=== PATIENT | male | born 1970 | race Caucasian/White ===

== ENCOUNTER 2016-06-23 13:27 | Emergency (ER) | payer OTHER ==
[2016-06-23 13:32] VITALS: BP 156/84
== END 2016-06-23 19:00 | disposition left against medical advice (07) ==
LOC: ED 13:27
DX: J02.9 Acute pharyngitis, unspecified (principal); Z53.21 Procedure and treatment not carried out due to patient leaving prior to being seen by health care provider

== ENCOUNTER 2017-03-26 07:20 | Emergency (ER) | payer OTHER ==
[2017-03-26] MEDS ORDERED: Dexamethasone TAB* 4 MG PO ONE (08:27)
--- NOTE | 2017-03-26 09:10 | RAD ---
Indication: RIGHT proximal humerus pain since January. No preceding injury. Comparison: August 18, 2015 chest radiograph. Technique: AP and lateral views RIGHT humerus. Report: The elbow is incompletely included in the [id number]. No fracture, periosteal reaction, or focal osseous lesion of the visualized humerus evident. Unremarkable articular alignment. Mild osteoarthritis at the acromioclavicular joint. Unremarkable soft tissue contours. IMPRESSION: Negative radiographic exam of the RIGHT humerus.
[2017-03-26 09:26] LABS: EGFR Non-African American 103.6 (>60)
--- NOTE | 2017-03-26 10:16 | ED ---
Varun Arroyo Angela, scribed for Rodriguez Handley MD on 03/26/17 at 0811 . Upper Extremity Pain - HPI Summary HPI Summary: This pt is a 46 y/o male, right hand dominant, presenting to [facility] c/o right arm pain for approximately 1 month. He reports that around thanksgiving time he hit his right arm on a door but he had pain before this happened. No other injuries prior to this episode. Pt notes he has pain on his right arm the more he raises it. His pain is completely alleviated with rest. Denies weakness in UE , skin changes, shoulder pain, neck swelling, arm swelling. PMHx includes type 2 diabetes. Pt notes he lifts heavy things occasionally. - History of Current Complaint Chief Complaint: EDExtremityUpper Stated Complaint: ARM INJURY Hx Obtained From: Patient Mechanism Of Injury: Unknown Onset/Duration: Started Weeks Ago, Still Present Timing: Lasting Weeks Severity Initially: Moderate Pain Location: Arm - right Aggravating Factor(s): Movement Alleviating Factor(s): Rest Associated Signs & Symptoms: Negative: Swelling, Weakness, Numbness/Tingling, Neck Pain Related History: Dominant Hand Right - Allergies/Home Medications Allergies/Adverse Reactions: Allergies Allergy/AdvReac Type Severity Reaction Status Date / Time No Known Allergies Allergy Verified 12/22/13 07:15 PMH/Surg Hx/FS Hx/Imm Hx Endocrine/Hematology History: Reports: Hx Diabetes - type 2 dm - well controlled Denies: Hx Thyroid Disease Cardiovascular History: Denies: Hx Hypertension, Hx Syncope Respiratory History: Denies: Hx Asthma, Hx Chronic Obstructive Pulmonary Disease (COPD) GI History: Reports: Hx Gastroesophageal Reflux Disease Denies: Hx Hiatal Hernia, Hx Ulcer Musculoskeletal History: Denies: Hx Arthritis, Hx Gout Sensory History: Reports: Hx Contacts or Glasses - for reading Opthamlomology History: Reports: Hx Contacts or Glasses - for reading Neurological History: Reports: Hx Headaches Denies: Hx Seizures Psychiatric History: Reports: Hx Anxiety, Hx Depression Infectious Disease History: No Infectious Disease History: Denies: Hx Hepatitis, Hx Human Immunodeficiency Virus (HIV), Traveled Outside the [place] in Last 30 Days - Family History Known Family History: Positive: Cardiac Disease, Diabetes - Social History Alcohol Use: None Substance Use Type: Reports: None Smoking Status (MU): Former Smoker Type: Cigarettes Have You Smoked in the Last Year: Yes Review of Systems Negative: Fever, Chills Cardiovascular: Negative Respiratory: Negative Musculoskeletal: Other - right arm pain Negative: Other - neck pain Skin: Negative Negative: Weakness, Numbness All Other Systems Reviewed And Are Negative: Yes Physical Exam - Summary Physical Exam Summary: Appearance: Well-appearing, Well-nourished Skin: Warm. No overlying skin changes in area of pain in right arm. Eyes: Normal ENT: Normal Neck: Supple, nontender Respiratory: Clear to auscultation Cardiovascular: Normal Abdomen: Soft, nontender Bowel: Present Musculoskeletal:Strength/ROM Intact. Normal distal pulses in radial areas bilaterally. Normal strength and sensation bilaterally in UE. Pain is reproduced with abduction in right arm. Neurological: Normal, A&Ox3 Psychiatric: Normal Triage Information Reviewed: Yes Vital Signs On Initial Exam: Initial Vitals Temp Pulse Resp BP Pulse Ox 97.4 F 104 20 150/96 100 03/26/17 07:28 03/26/17 07:28 03/26/17 07:28 03/26/17 07:28 03/26/17 07:28 Vital Signs Reviewed: Yes - Len Coma Scale Coma Scale Total: 15 Diagnostics - Vital Signs Vital Signs Temp Pulse Resp BP Pulse Ox 03/26/17 07:28 97.4 F 104 20 150/96 100 - Laboratory Lab Results: Lab Results 03/26/17 03/26/17 Range/Units 08:58 08:58 ESR 14 (0-14) mm/Hr Sodium 132 L (133-145) mmol/L Potassium 4.1 (3.5-5.0) mmol/L Chloride 98 L (101-111) mmol/L Carbon Dioxide 26 (22-32) mmol/L Anion Gap 8 (2-11) mmol/L BUN 15 (6-24) mg/dL Creatinine 0.80 (0.67-1.17) mg/dL Est GFR ( Amer) 133.3 (>60) Est GFR (Non-Af Amer) 103.6 (>60) BUN/Creatinine Ratio 18.8 (8-20) Glucose 251 H (70-100) mg/dL Calcium 9.4 (8.6-10.3) mg/dL Total Bilirubin 0.50 (0.2-1.0) mg/dL AST 19 (13-39) U/L ALT 41 (7-52) U/L Alkaline Phosphatase 61 (34-104) U/L Total Creatine Kinase 85 (10-223) U/L C-Reactive Protein 7.60 H (< 5.00) mg/L Total Protein 7.4 (6.4-8.9) g/dL Albumin 4.3 (3.2-5.2) g/dL Globulin 3.1 (2-4) g/dL Albumin/Globulin Ratio 1.4 (1-3) Result Diagrams: 03/26/17 08:58 Lab Statement: Any lab studies that have been ordered have been reviewed, and results considered in the medical decision making process. - Radiology Right humerus XR Xray Interpretation: No Acute Changes - IMPRESSION: Negative radiographic exam of the RIGHT humerus. Dr. Handley has reviewed this radiology report. Radiology Interpretation Completed By: Radiologist Course/Dx - Course Assessment/Plan: xr neg, labs wnl, neurovascular exam normal, full ROM. pt in no acute distress, I recommended that pt fu with orthopedist, agrees to and understands dc instructions. - Diagnoses Provider Diagnoses: Arm pain, lateral Discharge - Discharge Plan Condition: Stable Disposition: HOME Patient Education Materials: Arm Pain (ED) Referrals: Clifton Sloan MD [Primary Care Provider] - Theodore Teague MD [Medical Doctor] - Sujit Rivero MD [Medical Doctor] - Additional Instructions: PLEASE MAKE AN APPOINTMENT FIRST THING IN THE MORNING TO BE SEEN BY AN ORTHOPEDIST WITHIN 1-2 WEEKS PLEASE RETURN IMMEDIATELY TO THE ER IF YOU HAVE ANY WORSENING OR CONCERNING SYMPTOMS PLEASE MAKE AN APPOINTMENT TO BE SEEN BY YOUR PRIMARY CARE DOCTOR WITHIN 1 WEEK The documentation as recorded by the Varun jackson Angela accurately reflects the service I personally performed and the decisions made by me, Rodriguez Handley MD.
[2017-03-26 10:24] VITALS: BP 133/83
== END 2017-03-26 10:23 | disposition home or self-care (01) ==
LOC: ED 07:20
DX: M79.601 Pain in right arm (principal); E11.9 Type 2 diabetes mellitus without complications; Z87.891 Personal history of nicotine dependence
CPT/HCPCS: 36415; 80053; 82550; 85652; 86140; 99282

== ENCOUNTER 2017-08-01 06:05 | Emergency (ER) | payer OTHER ==
[2017-08-01 06:45] VITALS: BP 121/79
--- NOTE | 2017-08-01 07:09 | ED ---
Skin Complaint - HPI Summary HPI Summary: Pt. is a 47 y.o male who presents to the ER for evaluation of a wood splinter. Pt. states he was working on his house yesterday when he got a splinter to his hand. Pt. states he removed splinter but was concerned there was still a piece of wood in his finger because when he woke up area was painful. He is concerned for infection, because he has a hx of DM2. Pt. states since being in the ER his pain has resolved. He is unaware of his last tetanus immunization. Symptoms are mild in severity. Touching wound makes symptoms worse. Rest makes symptoms better. - History of Current Complaint Chief Complaint: EDLacSutureRecheck Time Seen by Provider: 08/01/17 06:16 Stated Complaint: POSS LT HAND INFECTION Hx Obtained From: Patient Pain Intensity: 0 Pain Scale Used: 0-10 Numeric - Allergy/Home Medications Allergies/Adverse Reactions: Allergies Allergy/AdvReac Type Severity Reaction Status Date / Time No Known Allergies Allergy Verified 05/24/17 14:42 PMH/Surg Hx/FS Hx/Imm Hx Previously Healthy: Yes Endocrine/Hematology History: Reports: Hx Diabetes - type 2 dm - well controlled Denies: Hx Thyroid Disease Cardiovascular History: Denies: Hx Hypertension, Hx Pacemaker/ICD, Hx Syncope Respiratory History: Denies: Hx Asthma, Hx Chronic Obstructive Pulmonary Disease (COPD) GI History: Reports: Hx Gastroesophageal Reflux Disease Denies: Hx Hiatal Hernia, Hx Ulcer History: Denies: Hx Renal Disease Musculoskeletal History: Denies: Hx Arthritis, Hx Gout Sensory History: Reports: Hx Contacts or Glasses - for reading Denies: Hx Hearing Aid Opthamlomology History: Reports: Hx Contacts or Glasses - for reading Neurological History: Reports: Hx Headaches Denies: Hx Seizures Psychiatric History: Reports: Hx Anxiety, Hx Depression Denies: Hx Panic Disorder Infectious Disease History: No Infectious Disease History: Denies: Hx Hepatitis, Hx Human Immunodeficiency Virus (HIV), Traveled Outside the [place] in Last 30 Days - Family History Known Family History: Positive: Cardiac Disease, Diabetes - Social History Occupation: Unemployed Lives: With Family Alcohol Use: None Substance Use Type: Reports: None Smoking Status (MU): Former Smoker Type: Cigarettes Have You Smoked in the Last Year: Yes Review of Systems Constitutional: Negative Negative: Fever, Chills Positive: Other - Wound left hand All Other Systems Reviewed And Are Negative: Yes Physical Exam Triage Information Reviewed: Yes Vital Signs On Initial Exam: Initial Vitals Temp Pulse Resp BP Pulse Ox 97.7 F 102 20 126/76 96 08/01/17 06:07 08/01/17 06:07 08/01/17 06:07 08/01/17 06:07 08/01/17 06:07 Vital Signs Reviewed: Yes Appearance: Positive: Well-Appearing - Pt. standing in room in NAD. Very anxious and talkative. Skin: Positive: Warm, Dry Head/Face: Positive: Normal Head/Face Inspection Eyes: Positive: Normal, TIM Musculoskeletal: Positive: Other - Small wound noted in between 2nd and 3rd digits of the left hand. No induration, fluctuance, or drainage. I do not appreciate FB. No pain to wound. Neurological: Positive: Normal, CN Intact II-III Psychiatric: Positive: Normal Diagnostics - Vital Signs Vital Signs Temp Pulse Resp BP Pulse Ox 08/01/17 06:43 97.4 F 89 18 121/79 98 08/01/17 06:07 97.7 F 102 20 126/76 96 - Laboratory Lab Statement: Any lab studies that have been ordered have been reviewed, and results considered in the medical decision making process. Course/Dx - Course Course Of Treatment: Pt. presenting for wound check. He is afebrile and well appearing. No signs of infection on exam. I do not appreciate FB. Pt. is unaware of his last tetanus immunization. Recommended updating tetanus today in the ER but pt. declined. Advised to f.u with his PCP to check tetanus status and update. To see PCP in 2-3 days for wound check. Pt. concerned wound is going to get infected, bactroban ointment rx. To return to ER for redness, swelling or drainage from wound. Pt. understands and agrees with plan. - Differential Diagnoses - Skin Complaint Differential Diagnoses: Cellulitis, Foreign Body - Diagnoses Provider Diagnoses: Visit for wound check Discharge - Sign-Out/Discharge Documenting (check all that apply): Discharge/Admit/Transfer - Discharge Plan Condition: Good Disposition: HOME Prescriptions: Mupirocin 2% OINT* [Bactroban 2 % Oint*] 1 applic TOPICAL BID #1 tube Patient Education Materials: Acute Wound Care (ED) Referrals: Clifton Sloan MD [Primary Care Provider] - Additional Instructions: Follow up with PCP for wound check in 2-3 days Ointment as directed Keep wound clean and dry Return to ER for redness, swelling, drainage, or fever - Billing Disposition and Condition Condition: GOOD Disposition: HOME
== END 2017-08-01 06:43 | disposition home or self-care (01) ==
LOC: ED 06:05
DX: S60.552A Superficial foreign body of left hand, initial encounter (principal); W45.8XXA Other foreign body or object entering through skin, initial encounter; Y92.019 Unspecified place in single-family (private) house as the place of occurrence of the external cause; Z28.20 Immunization not carried out because of patient decision for unspecified reason; Z87.891 Personal history of nicotine dependence
CPT/HCPCS: 99282

== ENCOUNTER 2017-08-07 08:39 | Emergency (ER) | payer OTHER ==
[2017-08-07] MEDS ORDERED: Sulfamethox/Trimethoprim DS 800/160* TAB PO ONE (09:56)
--- NOTE | 2017-08-07 09:57 | ED ---
Skin Complaint - HPI Summary HPI Summary: 47 year male presents with left-sided groin abscess for the past 12 hours. He states started all of a sudden. He states he's had an abscess previously there. He denies any known history of MRSA. He states that he is taking Keflex for the past couple of days due to a splinter that was stuck in his finger. He states the infection on his finger has been resolving. Denies any fevers. He denies any spreading redness. He is diabetic and his sugars have been good. He denies any chills or bodyaches. - History of Current Complaint Pain Intensity: 8 <Melly Goel - Last Filed: 08/07/17 10:20> <Dalila Munguia - Last Filed: 08/09/17 11:53> - History of Current Complaint Chief Complaint: EDRashSkinAbscess Time Seen by Provider: 08/07/17 09:14 Stated Complaint: BOIL - Allergy/Home Medications Allergies/Adverse Reactions: Allergies Allergy/AdvReac Type Severity Reaction Status Date / Time No Known Allergies Allergy Verified 08/07/17 08:48 Home Medications: Home Medications Cephalexin CAP* [Keflex CAP*] 500 mg PO BID 08/07/17 [History Confirmed 08/07/17 ] Fenofibrate(NF) [Tricor(NF)] 160 mg PO DAILY 08/07/17 [History Confirmed ] Insulin GLARGINE(*) [Lantus(*)] 20 units SUBCUT QPM 08/07/17 [History Confirmed 08/07/17] Losartan TAB* [Cozaar TAB*] 25 mg PO DAILY 08/07/17 [History Confirmed 08/07/17] Multivitamins/Minerals TAB* [Theragran/minerals TAB*] 1 tab PO DAILY 08/07/17 [ History Confirmed 08/07/17] Omeprazole CAP* [Prilosec CAP* 20 MG] 40 mg PO DAILY PRN 08/07/17 [History Confirmed 08/07/17] Sitagliptin Phos/Metformin HCl [Janumet 50-1000 mg] 1 tab PO BID 08/07/17 [ History Confirmed 08/07/17] PMH/Surg Hx/FS Hx/Imm Hx Endocrine/Hematology History: Reports: Hx Diabetes - type 2 dm - well controlled Denies: Hx Thyroid Disease Cardiovascular History: Denies: Hx Hypertension, Hx Pacemaker/ICD, Hx Syncope Respiratory History: Denies: Hx Asthma, Hx Chronic Obstructive Pulmonary Disease (COPD) GI History: Reports: Hx Gastroesophageal Reflux Disease Denies: Hx Hiatal Hernia, Hx Ulcer History: Denies: Hx Renal Disease Musculoskeletal History: Denies: Hx Arthritis, Hx Gout Sensory History: Reports: Hx Contacts or Glasses - for reading Denies: Hx Hearing Aid Opthamlomology History: Reports: Hx Contacts or Glasses - for reading Neurological History: Reports: Hx Headaches Denies: Hx Seizures Psychiatric History: Reports: Hx Anxiety, Hx Depression Denies: Hx Panic Disorder Infectious Disease History: No Infectious Disease History: Denies: Hx Hepatitis, Hx Human Immunodeficiency Virus (HIV), Traveled Outside the [place] in Last 30 Days - Family History Known Family History: Positive: Cardiac Disease, Diabetes - Social History Alcohol Use: None Substance Use Type: Reports: None Smoking Status (MU): Former Smoker Type: Cigarettes Have You Smoked in the Last Year: Yes <Melly Goel - Last Filed: 08/07/17 10:20> Review of Systems Negative: Fever Negative: Chest Pain Negative: Shortness Of Breath Positive: Rash All Other Systems Reviewed And Are Negative: Yes <Melly Goel - Last Filed: 08/07/17 10:20> Physical Exam Triage Information Reviewed: Yes Vital Signs On Initial Exam: Initial Vitals Temp Pulse Resp BP Pulse Ox 98.7 F 127 20 125/83 95 08/07/17 08:43 08/07/17 08:43 08/07/17 08:43 08/07/17 08:43 08/07/17 08:43 Vital Signs Reviewed: Yes Appearance: Positive: Well-Appearing Skin: Positive: Warm, Dry, Other - left side groin area of location 1cm by 2cm with erythema Head/Face: Positive: Normal Head/Face Inspection Eyes: Positive: Normal, Conjunctiva Clear Respiratory/Lung Sounds: Positive: Clear to Auscultation, Breath Sounds Present Cardiovascular: Positive: Normal, RRR Abdomen Description: Positive: Nontender, Soft Bowel Sounds: Positive: Present Musculoskeletal: Positive: Normal Neurological: Positive: Normal Psychiatric: Positive: Normal <Melly Goel - Last Filed: 08/07/17 10:20> Vital Signs On Initial Exam: Initial Vitals Temp Pulse Resp BP Pulse Ox 98.7 F 127 20 125/83 95 08/07/17 08:43 08/07/17 08:43 08/07/17 08:43 08/07/17 08:43 08/07/17 08:43 <Dalila Munguia - Last Filed: 08/09/17 11:53> Diagnostics - Vital Signs Vital Signs Temp Pulse Resp BP Pulse Ox 08/07/17 08:43 98.7 F 127 20 125/83 95 <Melly Goel - Last Filed: 08/07/17 10:20> - Vital Signs Vital Signs Temp Pulse Resp BP Pulse Ox 08/07/17 10:25 98.9 F 100 17 122/81 96 08/07/17 08:43 98.7 F 127 20 125/83 95 <Dalila Munguia - Last Filed: 08/09/17 11:53> Course/Dx - Course Course Of Treatment: 47 year male presents with left-sided groin abscess for the past 12 hours. He states started all of a sudden. He states he's had an abscess previously there. He denies any known history of MRSA. He states that he is taking Keflex for the past couple of days due to a splinter that was stuck in his finger. He states the infection on his finger has been resolving. Denies any fevers. He denies any spreading redness. He is diabetic and his sugars have been good. He denies any chills or bodyaches. on exam has loculated area of left groin 1cm by 2cm. area is too hard to drain at this point. will have place on bactrim and place heat on the area. will have return when area is able to be drained. patient understand and agrees with plan. - Differential Diagnoses - Skin Complaint Differential Diagnoses: Abscess, Cellulitis, Contact Dermatitis <Melly Goel - Last Filed: 08/07/17 10:20> <Dalila Munguia - Last Filed: 08/09/17 11:53> - Diagnoses Provider Diagnoses: Groin abscess Discharge - Sign-Out/Discharge Documenting (check all that apply): Discharge/Admit/Transfer - Billing Disposition and Condition Condition: GOOD Disposition: HOME <Melly Goel - Last Filed: 08/07/17 10:20> - Billing Disposition and Condition Condition: GOOD Disposition: HOME <Dalila Munguia - Last Filed: 08/09/17 11:53> - Discharge Plan Condition: Good Disposition: HOME Prescriptions: Sulfamethox/Trimethoprim DS* [Bactrim DS 800/160 TAB*] 1 tab PO BID #19 tab Patient Education Materials: Abscess (ED) Referrals: Clifton Sloan MD [Primary Care Provider] - Additional Instructions: Take antibiotic twice a day for 10 days, first dose given in ED Apply warm compresses to area Take ibuprofen or Tylenol for pain every 6 hours Return to ED if develop fever, area of redness spreads, or any new or worsening symptoms Attestation Statement User Type: Provider - I was available for consult. This patient was seen by the MARITZA. The patient was not presented to, seen by, or examined by me. -Rodrigoj <Dalila Munguia - Last Filed: 08/09/17 11:53>
[2017-08-07 10:27] VITALS: BP 122/81
== END 2017-08-07 10:25 | disposition home or self-care (01) ==
LOC: ED 08:39
DX: L02.214 Cutaneous abscess of groin (principal); E11.9 Type 2 diabetes mellitus without complications; Z79.4 Long term (current) use of insulin; Z87.891 Personal history of nicotine dependence
CPT/HCPCS: 99282; A9270-GY

== ENCOUNTER 2017-08-11 12:25 | Emergency (ER) | payer OTHER ==
[2017-08-11 13:53] VITALS: BP 119/92
--- NOTE | 2017-08-12 10:02 | ED ---
Skin Complaint - HPI Summary HPI Summary: Patient's 47-year-old male presenting to the ED with a complaint of left groin abscess. He was seen 4 days ago and provider stated she would be unable to perform an I&D as the area still was very hard and indurated and not fluctuant. He was to return after providing warm compresses to the area for an I&D. He arrives today for a wound check an I&D and states the area is much more fluctuant and it was several days ago. He states he has had an abscess in this area several years ago. Denies any shaving to the area. He has been on Keflex for a hand infection for one week and was placed on Bactrim 4 days ago. He feels this has improved the symptoms and softened the area. Denies any fevers, sweats, chills. Denies any other signs of systemic illness. - History of Current Complaint Chief Complaint: EDRashSkinAbscess Time Seen by Provider: 08/11/17 13:10 Stated Complaint: ABSCESS Hx Obtained From: Patient Onset/Duration: Started Days Ago Skin Exposure Onset/Duration: Hours Ago Timing: Constant Onset Severity: Moderate Current Severity: Moderate Pain Intensity: 3 Pain Scale Used: 0-10 Numeric Skin Location: Discrete - left groin Character: Redness, Raised, Painful - All Aggravating Symptom(s): Nothing Alleviating Symptom(s): Heat Associated Signs & Symptoms: Tenderness - Allergy/Home Medications Allergies/Adverse Reactions: Allergies Allergy/AdvReac Type Severity Reaction Status Date / Time No Known Allergies Allergy Verified 08/11/17 12:28 PMH/Surg Hx/FS Hx/Imm Hx Previously Healthy: Yes Endocrine/Hematology History: Reports: Hx Diabetes - type 2 dm - well controlled Denies: Hx Thyroid Disease Cardiovascular History: Denies: Hx Hypertension, Hx Pacemaker/ICD, Hx Syncope Respiratory History: Denies: Hx Asthma, Hx Chronic Obstructive Pulmonary Disease (COPD) GI History: Reports: Hx Gastroesophageal Reflux Disease Denies: Hx Hiatal Hernia, Hx Ulcer History: Denies: Hx Renal Disease Musculoskeletal History: Denies: Hx Arthritis, Hx Gout Sensory History: Reports: Hx Contacts or Glasses - for reading Denies: Hx Hearing Aid Opthamlomology History: Reports: Hx Contacts or Glasses - for reading Neurological History: Reports: Hx Headaches Denies: Hx Seizures Psychiatric History: Reports: Hx Anxiety, Hx Depression Denies: Hx Panic Disorder - Immunization History Hx Pertussis Vaccination: No Immunizations Up to Date: Unable to Obtain/Confirm Infectious Disease History: No Infectious Disease History: Denies: Hx Hepatitis, Hx Human Immunodeficiency Virus (HIV), Traveled Outside the [place] in Last 30 Days - Family History Known Family History: Positive: Cardiac Disease, Diabetes - Social History Occupation: Employed Full-time Lives: Alone Alcohol Use: None Substance Use Type: Reports: None Hx Tobacco Use: Yes Smoking Status (MU): Former Smoker Type: Cigarettes Have You Smoked in the Last Year: Yes Review of Systems Constitutional: Negative Negative: Fever, Chills, Fatigue Negative: Palpitations, Chest Pain Negative: Shortness Of Breath, Cough Genitourinary: Negative Positive: no symptoms reported, see HPI Negative: Arthralgia, Myalgia Positive: Other - slightly fluctuant erythematous warm 2x1cm area to the left groin Neurological: Negative Positive: Anxious All Other Systems Reviewed And Are Negative: Yes Physical Exam Triage Information Reviewed: Yes Vital Signs On Initial Exam: Initial Vitals Temp Pulse Resp BP Pulse Ox 96.6 F 116 16 126/100 100 08/11/17 12:28 08/11/17 12:28 08/11/17 12:28 08/11/17 12:28 08/11/17 12:28 Vital Signs Reviewed: Yes Appearance: Positive: Well-Appearing, Well-Nourished Skin: Positive: Warm, Skin Color Reflects Adequate Perfusion, Other - slightly fluctuant erythematous warm 2x1cm area to the left groin Head/Face: Positive: Normal Head/Face Inspection Neck: Positive: Supple, No Lymphadenopathy Respiratory/Lung Sounds: Positive: Clear to Auscultation, Breath Sounds Present Cardiovascular: Positive: Normal, RRR, Pulses are Symmetrical in both Upper and Lower Extremities Musculoskeletal: Positive: Strength/ROM Intact Neurological: Positive: Sensory/Motor Intact, Alert, Oriented to Person Place, Time, Speech Normal Psychiatric: Positive: Normal, Affect/Mood Appropriate AVPU Assessment: Alert Diagnostics - Vital Signs Vital Signs Temp Pulse Resp BP Pulse Ox 08/11/17 13:52 98.8 F 101 17 119/92 97 08/11/17 12:28 96.6 F 116 16 126/100 100 - Laboratory Lab Statement: Any lab studies that have been ordered have been reviewed, and results considered in the medical decision making process. Course/Dx - Course Course Of Treatment: On physical examination there is a 2 cm x 1 cm erythematous and warm only slightly fluctuant area to the left groin. I have discussed treatment options with the patient to continue moist heat to the area or to attempt an I&D at this time. He prefers an I&D due to pain. Time out obtained. Sterile prep with iodine. Small 0.5 cm incision to the most superior portion with expressed bleeding. No purulent drainage. The area appears to be tissue. I discussed this is likely a lymph node and not a abscess however it is difficult to tell as he has been taking an antibiotic which may have improved the abscess. He is to follow-up with surgery. No iodoform gauze or drain placement. Bandage applied and I have continue to encourage warm compresses and he will complete his course of antibiotics. - Differential Diagnoses - Skin Complaint Differential Diagnoses: Other - groin cyst, lymphnode, mass, abscess - Diagnoses Provider Diagnoses: Groin mass Discharge - Sign-Out/Discharge Documenting (check all that apply): Discharge/Admit/Transfer - Discharge Plan Condition: Stable Disposition: HOME Referrals: Liam Parada MD [Medical Doctor] - Clifton Sloan MD [Primary Care Provider] - Additional Instructions: Please follow up with surgery if symptoms persist despite the antibiotics - Billing Disposition and Condition Condition: STABLE Disposition: HOME
== END 2017-08-11 13:52 | disposition home or self-care (01) ==
LOC: ED 12:25
DX: R22.2 Localized swelling, mass and lump, trunk (principal); Z87.891 Personal history of nicotine dependence
CPT/HCPCS: 99282

== ENCOUNTER 2017-08-18 10:50 | Emergency (ER) | payer OTHER ==
--- OUTSIDE RECORDS SUMMARY | 2017-08-18 11:17 | XMS REPORT ---
:1970 External Reference #:[id number] Author Organization [facility] Address [address] [place] [address] Phone [phone] Care Team Providers Name Role Phone Clifton Sloan MD Primary Care Physician Unavailable Payers Type Date Identification Numbers Payment Provider Subscriber Commercial Expires: Policy Number: Hcpip[employer] Lul Arriola 2014 [id number] Group Name: [address] [place] [address] Commercial Effective: 2014 Policy Number: [id number] Lavelle Arriola Group Number: [id number] [address] PayID: [id number] [place] [address] Problems Date Description Provider Status Onset: 06/04/2014 Diabetes mellitus Malik Antonio M.D. Active Onset: 06/04/2014 Dyslipidemia Malik Antonio M.D. Active Onset: 07/20/2015 Diabetic retinopathy Jacob Mullen NP Active Note: Mild Dr. Franklin monitoring Onset: 09/13/2015 Hyperlipidemia Clifton Sloan M.D. Active Onset: 09/13/2015 Chronic obstructive lung disease Clifton Sloan M.D. Active Onset: 09/13/2015 Type 2 diabetes mellitus with Clifton Sloan M.D. Active diabetic polyneuropathy Onset: 09/29/2015 Scar emphysema Clifton Sloan M.D. Active Onset: 09/29/2015 Asthma without status asthmaticus Clifton Sloan M.D. Active Onset: 09/29/2015 Pityriasis versicolor Clifton Sloan M.D. Active Onset: 01/27/2016 Mixed hyperlipidemia Clifton Sloan M.D. Active Onset: 01/27/2016 Obesity Clifton Sloan M.D. Active Onset: 12/04/2016 Plantar fascial fibromatosis Clifton Sloan M.D. 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 Quit 2012. Recreational Drug Use Denies Drug Use Daily Caffeine Consumes on average 4 pots of regular coffee per day Exercise Type/Frequency Does not exercise Allergies, Adverse Reactions, Alerts Date Description Reaction Status Severity Comments 09/08/2014 NKDA active Medications Medication Date Status Form Strength Qnty SIG Indications Ordering Provider BD Pen 07/02/ Active Misc 31G X 5 mm 300uni use with Clifton Needle/Mini/Ul 2018 ts Basaglsapna Sloan, trafine/31G X daily M.D. 05/31" Janumet 07/01/ Active Tablets 50-1000mg 60tabs take 1 Z01.818 Mcgraws 2018 tablet by Luther, mouth M.D. twice a day Basaglar 07/01/ Active Solution 100Unit/ML 15unit Inject 20 Natalie Kwikpen 2018 Pen-Inject s Units SQ Cotton, hs M.D. Losartan 12/04/ Active Tablets 25mg 30tabs take one E11.42 Mcgraws Potassium 2017 tablet Pachikara, daily. M.D. Fenofibrate 09/10/ Active Tablets 160mg 30tabs Take One Zsofia 2015 Tablet By [place] Mouth TESTER OPERATOR Every Day Omeprazole / Active Capsules 40mg 30caps Take One Mcgraws [address] DR Capsule By Luther, Mouth M.D. Every Day Sulfamethoxazo / Active Tablets 800-160mg bid Unknown le/Trimethopri 0000 m DS Cephalexin / Active Capsules 500mg bid Unknown 0000 Toujeo Max 07/01/ Hx Solution 300Unit/ML 6ml 20 units Z01.818 Mcgraws Solostar 2018 - Pen-Inject hs [facility], 07/01/ M.D. 2018 Toujeo 07/01/ Hx Solution 300Unit/ML 3ml inject 20 Clifton Solostar 2018 - Pen-Inject units [facility], 07/01/ under the M.D. 2018 skin at Pulmicort 02/21/ Hx Aerosol 180mcg/Act 1units inhale one J45.909 Clifton Flexhaler 2016 - puff by [facility], 12/04/ mouth M.D. 2017 twice a day Atorvastatin 01/26/ Hx Tablets 20mg 30tabs take 1 E78.2 Clifton Calcium 2015 - tablet at [facility], 06/25/ bedtime M.D. 2016 Ketoconazole 09/28/ Hx Cream 2% 120gm apply B36.0 Clifton 2015 - twice a [facility], 06/29/ day M.D. 2017 Symbicort 09/25/ Hx Aerosol 160-4.5mcg 30.6gm 2 puff J45.909 Zsofia 2016 - /Act once a day [place], 04/17/ for 1 week TESTER OPERATOR 2017 then stop Proair HFA 09/25/ Hx Aerosol 108(90Base 25.5gm 2 puffs ih J45.909 Clifton 2016 - ) mcg/Act every 6 [facility], 12/04/ hours as M.D. 2017 needed Metformin HCL 05/13/ Hx Tablets 1000mg 60tabs Take One Clifton 2015 - Tablet By [facility], 07/01/ Mouth M.D. 2017 Twice A Day Glipizide ER 05/13/ Hx Tablets ER 10mg 30tabs Take One E11.9 Clifton 2015 - 24HR Tablet By [facility], 07/01/ Mouth M.D. 2018 Every Day Fenofibrate 09/08/ Hx Tablets 145mg 90tabs 1 by mouth 272.4 Malik 2014 - every day Antonio, 09/10/ M.D. 2014 Glipizide ER 06/04/ Hx Tablets ER 5mg 60tabs 1 by mouth E11.9 Malik 2015 - 24HR every day Antonio, 05/13/ M.D. 2016 Metformin HCL / Hx Tablets 500mg 60tabs 1 tablet Malik 0000 - by mouth Antonio, 05/13/ twice a M.D. 2016 day Medications Administered in Office Medication Date Status Form Strength Qnty SIG Indications Ordering Provider Depomedrol Administered Injection Giorgio 40MG 018 MD Corinne Vital Signs Date Vital Result Comment 08/13/2017 Height 72 inches 6'0" Weight 235.00 lb Heart Rate 97 /min BP Systolic Sitting 134 mmHg BP Diastolic Sitting 76 mmHg Body Temperature 97.7 F O2 % BldC Oximetry 97 % BMI (Body Mass Index) 31.9 kg/m2 07/01/2017 Weight 246.00 lb Heart Rate 105 /min BP Systolic Sitting 126 mmHg BP Diastolic Sitting 66 mmHg Body Temperature 97.7 F O2 % BldC Oximetry 96 % 06/14/2017 Height 72 inches 6'0" Weight 244.00 lb Heart Rate 123 /min Respiratory Rate 18 /min Body Temperature 98.0 F Pain Level 0 BMI (Body Mass Index) 33.1 kg/m2 05/03/2017 Height 72 inches 6'0" Heart Rate 100 /min Respiratory Rate 16 /min 04/11/2017 Heart Rate 105 /min BP Systolic Sitting 137 mmHg BP Diastolic Sitting 81 mmHg Body Temperature 97.5 F O2 % BldC Oximetry 97 % 03/27/2017 Height 72 inches 6'0" Heart Rate 65 /min BP Systolic 116 mmHg BP Diastolic 70 mmHg Respiratory Rate 20 /min Body Temperature 97.9 F Pain Level 10 01/16/2017 Height 72 inches 6'0" Weight 244.00 lb Heart Rate 88 /min BP Systolic 122 mmHg BP Diastolic 80 mmHg Respiratory Rate 14 /min Body Temperature 98.0 F Pain Level 6 BMI (Body Mass Index) 33.1 kg/m2 12/04/2016 Height 72 inches 6'0" Weight 244.50 lb Heart Rate 93 /min BP Systolic 136 mmHg BP Diastolic 78 mmHg Body Temperature 98.2 F O2 % BldC Oximetry 96 % BMI (Body Mass Index) 33.2 kg/m2 06/29/2016 Weight 233.00 lb Heart Rate 98 /min BP Systolic Sitting 130 mmHg BP Diastolic Sitting 86 mmHg Body Temperature 98.2 F O2 % BldC Oximetry 98 % 06/25/2016 Weight 234.00 lb Heart Rate 96 /min BP Systolic Sitting 116 mmHg BP Diastolic Sitting 76 mmHg Body Temperature 98.0 F O2 % BldC Oximetry 96 % 02/22/2016 Weight 245.38 lb Heart Rate 116 /min BP Systolic Sitting 149 mmHg BP Diastolic Sitting 83 mmHg Body Temperature 98.4 F O2 % BldC Oximetry 98 % 01/27/2016 Height 72 inches 6'0" Weight 245.38 lb Heart Rate 108 /min BP Systolic Sitting 130 mmHg BP Diastolic Sitting 86 mmHg Body Temperature 97.3 F O2 % BldC Oximetry 98 % BMI (Body Mass Index) 33.3 kg/m2 09/29/2015 Height 72 inches 6'0" Heart Rate 100 /min BP Systolic Sitting 126 mmHg BP Diastolic Sitting 88 mmHg Body Temperature 97.8 F O2 % BldC Oximetry 98 % 09/13/2015 Height 72 inches 6'0" Weight 244.00 lb Heart Rate 102 /min BP Systolic Sitting 132 mmHg BP Diastolic Sitting 88 mmHg O2 % BldC Oximetry 97 % BMI (Body Mass Index) 33.1 kg/m2 07/19/2015 Height 72 inches 6'0" Weight 244.00 lb Heart Rate 101 /min BP Systolic 121 mmHg BP Diastolic 74 mmHg Pain Level 6 BMI (Body Mass Index) 33.1 kg/m2 07/06/2015 Height 72 inches 6'0" Heart Rate 117 /min BP Systolic Sitting 94 mmHg BP Diastolic Sitting 72 mmHg Body Temperature 98.6 F O2 % BldC Oximetry 97 % 06/13/2015 Height 72 inches 6'0" Weight 239.00 lb Heart Rate 108 /min BP Systolic Sitting 138 mmHg BP Diastolic Sitting 86 mmHg Body Temperature 98.4 F O2 % BldC Oximetry 98 % BMI (Body Mass Index) 32.4 kg/m2 05/13/2015 Height 72 inches 6'0" Weight 238.38 lb Heart Rate 106 /min BP Systolic Sitting 118 mmHg BP Diastolic Sitting 80 mmHg Body Temperature 98.5 F O2 % BldC Oximetry 98 % BMI (Body Mass Index) 32.3 kg/m2 11/02/2014 Height 72 inches 6'0" Weight 246.50 lb Heart Rate 84 /min BP Systolic Sitting 124 mmHg BP Diastolic Sitting 68 mmHg Body Temperature 97.5 F O2 % BldC Oximetry 98 % BMI (Body Mass Index) 33.4 kg/m2 09/08/2014 Height 72 inches 6'0" Weight 243.25 lb Heart Rate 88 /min BP Systolic Sitting 108 mmHg BP Diastolic Sitting 70 mmHg Body Temperature 97.4 F O2 % BldC Oximetry 98 % BMI (Body Mass Index) 33.0 kg/m2 06/04/2014 Height 72 inches 6'0" Weight 230.00 lb Heart Rate 105 /min BP Systolic Sitting 124 mmHg BP Diastolic Sitting 88 mmHg Body Temperature 97.8 F O2 % BldC Oximetry 97 % BMI (Body Mass Index) 31.2 kg/m2 10/17/2012 Height 72 inches 6'0" Weight 200.00 lb Heart Rate 136 /min BP Systolic 120 mmHg BP Diastolic 77 mmHg BMI (Body Mass Index) 27.1 kg/m2 Results Test Date Test Result H/L Range Note Laboratory test finding 07/01/2017 Hemoglobin A1c 10.9 High 5-7 Laboratory test finding 04/11/2017 Hemoglobin A1c 10.8 High 5-7 Lipid Profile (Trig/Chol/HDL) 04/10/2017 Triglycerides 196 mg/dL 1 Cholesterol 261 mg/dL 2 HDL Cholesterol 40.0 mg/dL 3 LDL Cholesterol 182 mg/dL 4 Laboratory test finding 03/26/2017 Creatine Kinase(CK) 85 U/L 10-223 C Reactive Protein 7.60 mg/L High < 5.00 5 Erythrocyte Sed Rate 14 mm/Hr 0-14 Comp Metabolic Panel 03/26/2017 Sodium 132 mmol/L Low 133-145 Potassium 4.1 mmol/L 3.5-5.0 Chloride 98 mmol/L Low 101-111 Co2 Carbon Dioxide 26 mmol/L 22-32 Anion Gap 8 mmol/L 2-11 Glucose 251 mg/dL High 70-100 Blood Urea Nitrogen 15 mg/dL 6-24 Creatinine 0.80 mg/dL 0.67-1.17 BUN/Creatinine Ratio 18.8 8-20 Calcium 9.4 mg/dL 8.6-10.3 Total Protein 7.4 g/dL 6.4-8.9 Albumin 4.3 g/dL 3.2-5.2 Globulin 3.1 g/dL 2-4 Albumin/Globulin Ratio 1.4 1-3 Total Bilirubin 0.50 mg/dL 0.2-1.0 Alkaline Phosphatase 61 U/L 34-104 Alt 41 U/L 7-52 Ast 19 U/L 13-39 Egfr Non- 103.6 >60 Egfr 133.3 >60 6 Laboratory test finding 12/04/2016 Hemoglobin A1c 9.4 High 5-7 Lipid Profile (Trig/Chol/HDL) 12/03/2016 Triglycerides 399 mg/dL 7 Cholesterol 270 mg/dL 8 HDL Cholesterol 37.1 mg/dL 9 LDL Cholesterol 153 mg/dL 10 Laboratory test finding 06/25/2016 Rapid Group A Strep neg Urine Microalbumin Random 06/25/2016 Urine Creatinine 179.57 mg/dL Ur Microalbumin (mg/L) 16.3 mg/L Urine Microalbumin/Creatinine 9.0 ug/mg <31 Laboratory test 06/25/2016 Hemoglobin A1c (Glyco 9.9 % High Less than 6.0 11 finding HGB) Lipid Profile 06/25/2016 Triglycerides 745 mg/dL 12 (Trig/Chol/HDL) Cholesterol 306 mg/dL 13 HDL Cholesterol 38.4 mg/dL 14 LDL Cholesterol (SEE NOTE) mg/dL 15 Laboratory test 01/27/2016 Hemoglobin A1c 8.9 High 5-7 finding Laboratory test 01/18/2016 Alpha 1 Antitrypsin 136 mg/dL 100 - 190 16 finding A1a Laboratory test 01/18/2016 PSA Screening 0.726 ng/mL 0-4.000 17 finding Comp Metabolic Panel 01/18/2016 Sodium 136 mmol/L 133-145 Potassium 4.3 mmol/L 3.5-5.0 Chloride 100 mmol/L Low 101-111 Co2 Carbon Dioxide 27 mmol/L 22-32 Anion Gap 9 mmol/L 2-11 Glucose 197 mg/dL High 70-100 Blood Urea Nitrogen 14 mg/dL 6-24 Creatinine 1.02 mg/dL 0.67-1.17 BUN/Creatinine Ratio 13.7 8-20 Calcium 9.2 mg/dL 8.6-10.3 Total Protein 7.0 g/dL 6.4-8.9 Albumin 4.2 g/dL 3.2-5.2 Globulin 2.8 g/dL 2-4 Albumin/Globulin Ratio 1.5 1-3 Total Bilirubin 0.60 mg/dL 0.2-1.0 Alkaline Phosphatase 51 U/L 34-104 Alt 46 U/L 7-52 Ast 19 U/L 13-39 Egfr Non- 78.6 >60 Egfr 101.1 >60 18 Lipid Profile (Trig/Chol/HDL) 01/18/2016 Triglycerides 259 mg/dL 19 Cholesterol 243 mg/dL 20 HDL Cholesterol 39.2 mg/dL 21 LDL Cholesterol 152 mg/dL 22 Comp Metabolic Panel 09/08/2015 Sodium 133 mmol/L 133-145 Potassium 4.3 mmol/L 3.5-5.0 Chloride 101 mmol/L 101-111 Co2 Carbon Dioxide 24 mmol/L 22-32 Anion Gap 8 mmol/L 2-11 Glucose 193 mg/dL High 70-100 Blood Urea Nitrogen 12 mg/dL 6-24 Creatinine 0.88 mg/dL 0.67-1.17 BUN/Creatinine Ratio 13.6 8-20 Calcium 9.2 mg/dL 8.6-10.3 Total Protein 6.8 g/dL 6.4-8.9 Albumin 4.3 g/dL 3.2-5.2 Globulin 2.5 g/dL 2-4 Albumin/Globulin Ratio 1.7 1-3 Total Bilirubin 0.40 mg/dL 0.2-1.0 Alkaline Phosphatase 47 U/L 34-104 Alt 29 U/L 7-52 Ast 14 U/L 13-39 Egfr Non- 93.2 >60 Egfr 119.9 >60 23 Laboratory test 09/08/2015 Hemoglobin A1c (Glyco 8.1 % High Less than 6.0 24 finding HGB) Lipid Profile 09/08/2015 Triglycerides 213 mg/dL 25 (Trig/Chol/HDL) Cholesterol 208 mg/dL 26 HDL Cholesterol 39.5 mg/dL 27 LDL Cholesterol 126 mg/dL 28 Comp Metabolic Panel 06/07/2015 Sodium 134 mmol/L 133-145 Potassium 4.1 mmol/L 3.5-5.0 Chloride 98 mmol/L Low 101-111 Co2 Carbon Dioxide 27 mmol/L 22-32 Anion Gap 9 mmol/L 2-11 Glucose 214 mg/dL High 70-100 Blood Urea Nitrogen 15 mg/dL 6-24 Creatinine 0.96 mg/dL 0.67-1.17 BUN/Creatinine Ratio 15.6 8-20 Calcium 9.1 mg/dL 8.6-10.3 Total Protein 6.6 g/dL 6.4-8.9 Albumin 4.0 g/dL 3.2-5.2 Globulin 2.6 g/dL 2-4 Albumin/Globulin Ratio 1.5 1-3 Total Bilirubin 0.40 mg/dL 0.2-1.0 Alkaline Phosphatase 53 U/L 34-104 Alt 34 U/L 7-52 Ast 19 U/L 13-39 Egfr Non- 84.7 >60 Egfr 108.9 >60 29 Laboratory test finding 05/13/2015 Hemoglobin A1c 9.7 High 5-7 Lipid Profile (Trig/Chol/HDL) 05/10/2015 Triglycerides 258 mg/dL 30 Cholesterol 247 mg/dL 31 HDL Cholesterol 36.0 mg/dL 32 LDL Cholesterol 159 mg/dL 33 Laboratory test finding 11/02/2014 Glucose Fingerstick 215 Laboratory test finding 11/02/2014 Hemoglobin A1c 8.6 High 5-7 Comp Metabolic Panel 10/27/2014 Sodium 134 mmol/L 133-145 34 Potassium 4.4 mmol/L 3.5-5.0 34 Chloride 99 mmol/L Low 101-111 34 Co2 Carbon Dioxide 25 mmol/L 22-32 34 Anion Gap 10 mmol/L 2-11 34 Glucose 307 mg/dL High 70-100 34 Blood Urea Nitrogen 14 mg/dL 6-24 34 Creatinine 0.92 mg/dL 0.67-1.17 34 BUN/Creatinine Ratio 15.2 8-20 34 Calcium 9.1 mg/dL 8.6-10.3 34 Total Protein 6.9 g/dL 6.4-8.9 34 Albumin 4.3 g/dL 3.2-5.2 34 Globulin 2.6 g/dL 2-4 34 Albumin/Globulin Ratio 1.7 1-3 34 Total Bilirubin 0.40 mg/dL 0.2-1.0 34 Alkaline Phosphatase 60 U/L 34-104 34 Alt 43 U/L 7-52 34 Ast 18 U/L 13-39 34 Egfr Non- 89.0 >60 34 Egfr 114.4 >60 34, 35 Comp Metabolic Panel 06/04/2014 Sodium 130 mmol/L Low 133-145 36 Potassium 4.1 mmol/L 3.5-5.0 36 Chloride 97 mmol/L Low 101-111 36 Co2 Carbon Dioxide 26 mmol/L 22-32 36 Anion Gap 7 mmol/L 2-11 36 Glucose 289 mg/dL High 70-100 36 Blood Urea Nitrogen 11 mg/dL 6-24 36 Creatinine 0.83 mg/dL 0.67-1.17 36 BUN/Creatinine Ratio 13.3 8-20 36 Calcium 9.2 mg/dL 8.6-10.3 36 Total Protein 7.1 g/dL 6.4-8.9 36 Albumin 4.4 g/dL 3.2-5.2 36 Globulin 2.7 g/dL 2-4 36 Albumin/Globulin Ratio 1.6 1-3 36 Total Bilirubin 0.60 mg/dL 0.2-1.0 36 Alkaline Phosphatase 90 U/L 34-104 36 Alt 25 U/L 7-52 36 Ast 16 U/L 13-39 36 Egfr Non- 100.6 >60 36 Egfr 129.4 >60 36, 37 Laboratory test finding 06/04/2014 Hemoglobin A1c 11.4 High 5-7 CBC Auto Diff 06/04/2014 White Blood Count 7.9 10^3/uL 4.8-10.8 36 Red Blood Count 6.10 10^6/uL High 4.0-5.4 36 Hemoglobin 17.4 g/dL 14.0-18.0 36 Hematocrit 51 % 42-52 36 Mean Corpuscular Volume 83 fL 80-94 36 Mean Corpuscular Hemoglobin 29 pg 27-31 36 Mean Corpuscular HGB Conc 34 g/dL 31-36 36 Red Cell Distribution Width 13 % 10.5-15 36 Platelet Count 203 10^3/uL 150-450 36 Mean Platelet Volume 8 um3 7.4-10.4 36 Abs Neutrophils 4.8 10^3/uL 1.5-7.7 36 Abs Lymphocytes 1.9 10^3/uL 1.0-4.8 36 Abs Monocytes 0.9 10^3/uL High 0-0.8 36 Abs Eosinophils 0.1 10^3/uL 0-0.6 36 Abs Basophils 0 10^3/uL 0-0.2 36 Abs Nucleated RBC 0.02 10^3/uL 36 Granulocyte % 61.3 % 38-83 36 Lymphocyte % 24.5 % Low 25-47 36 Monocyte % 12.0 % High 1-9 36 Eosinophil % 1.7 % 0-6 36 Basophil % 0.5 % 0-2 36 Nucleated Red Blood Cells % 0.3 36 Laboratory test 06/04/2014 TSH (Thyroid 0.86 IU/mL 0.34-5.60 36, 38 finding Stimulating Horm) Lipid Profile 06/04/2014 Triglycerides 844 mg/dL 36, 39 (Trig/Chol/HDL) Cholesterol 307 mg/dL 36, 40 HDL Cholesterol 37.3 mg/dL 36, 41 LDL Cholesterol (SEE NOTE) mg/dL 36, 42 Urinalysis Profile 06/04/2014 Urine Color Yellow 36 Urine Appearance Cloudy 36 Urine Specific [place] 1.033 High 1.010-1.030 36 Urine pH 5.0 5-9 36 Urine Urobilinogen Negative Negative 36 Urine Ketones 1+ Negative 36 Urine Protein Negative Negative 36 Urine Leukocytes Negative Negative 36 Urine Blood Negative Negative 36 * * Negative 36, 43 Urine Nitrite Negative Negative 36 Urine Bilirubin Negative Negative 36 Urine Glucose 3+(>=500 mg/dL) Negative 36 Urine Microalbumin Random 06/04/2014 Ur Microalbumin (mg/L) 44.0 mg/L 36 Urine Creatinine 175.04 mg/dL 36 Urine Microalbumin/Creatinine 25.1 Less Than 31 36 1 Desirable: <150 Borderline High: 150-199 High: 200-499 Very High: >500 2 Desirable: <200 Borderline High: 200-239 High: >239 3 Low: <40 Desirable: 40-60 High: >60 4 Desirable: <100 Near Optimal: 100-129 Borderline High: 130-159 High: 160-189 Very High: >189 5 Acute inflammation: >10.00 6 Because ethnic data is not always readily available, this report includes an eGFR for both -Americans and non- Americans. The National Kidney Disease Education Program (NKDEP) does not endorse the use of the MDRD equation for patients that are not between the ages of 18 and 70, are , have extremes of body size, muscle mass, or nutritional status, or are non- or non-. According to the National Kidney Foundation, irrespective of diagnosis, the stage of the disease is based on the level of kidney function: Stage Description GFR(mL/min/1.73 m(2)) 1 Kidney damage with normal or decreased GFR 90 2 Kidney damage with mild decrease in GFR 60-89 3 Moderate decrease in GFR 30-59 4 Severe decrease in GFR 15-29 5 Kidney failure <15 (or dialysis) 7 Desirable <150 Borderline high 150-199 High 200-499 Very High >500 8 Desirable <200 Borderline high 200-239 High >239 9 Low <40 Desirable: 40-60 High: >60 10 Desirable: <100 mg/dL Near Optimal: 100-129 mg/dL Borderline High: 130-159 mg/dL High: 160-189 mg/dL Very High: >189 mg/dL 11 Therapeutic target for the treatment of diabetes Mellitus patients is <7% HBA1C, and in selective patients <6.0%.Please refer to [place] [employer] Diabetic care guidelines for further information. 12 Desirable <150 Borderline high 150-199 High 200-499 Very High >500 13 Desirable <200 Borderline high 200-239 High >239 14 Low <40 Desirable: 40-60 High: >60 15 Unable to calculate LDL as triglyceride is > 400 16 Test Performed by: [place] [address] Doughmaker: Marek Rodriges II, M.D., Ph.D. 17 Serum levels of PSA measured using the [employer] [place] DXI Hybritech immunoassay should not be interpreted as absolute evidence of the presence or absence of disease. The PSA value should be used in conjunction with other pertinent clinical diagnostic procedures. The values obtained with different assay methods or kits cannot be used interchangeably. 18 Because ethnic data is not always readily available, this report includes an eGFR for both -Americans and non- Americans. The National Kidney Disease Education Program (NKDEP) does not endorse the use of the MDRD equation for patients that are not between the ages of 18 and 70, are , have extremes of body size, muscle mass, or nutritional status, or are non- or non-. According to the National Kidney Foundation, irrespective of diagnosis, the stage of the disease is based on the level of kidney function: Stage Description GFR(mL/min/1.73 m(2)) 1 Kidney damage with normal or decreased GFR 90 2 Kidney damage with mild decrease in GFR 60-89 3 Moderate decrease in GFR 30-59 4 Severe decrease in GFR 15-29 5 Kidney failure <15 (or dialysis) 19 Desirable <150 Borderline high 150-199 High 200-499 Very High >500 20 Desirable <200 Borderline high 200-239 High >239 21 Low <40 Desirable: 40-60 High: >60 22 Desirable: <100 mg/dL Near Optimal: 100-129 mg/dL Borderline High: 130-159 mg/dL High: 160-189 mg/dL Very High: >189 mg/dL 23 Because ethnic data is not always readily available, this report includes an eGFR for both -Americans and non- Americans. The National Kidney Disease Education Program (NKDEP) does not endorse the use of the MDRD equation for patients that are not between the ages of 18 and 70, are , have extremes of body size, muscle mass, or nutritional status, or are non- or non-. According to the National Kidney Foundation, irrespective of diagnosis, the stage of the disease is based on the level of kidney function: Stage Description GFR(mL/min/1.73 m(2)) 1 Kidney damage with normal or decreased GFR 90 2 Kidney damage with mild decrease in GFR 60-89 3 Moderate decrease in GFR 30-59 4 Severe decrease in GFR 15-29 5 Kidney failure <15 (or dialysis) 24 Therapeutic target for the treatment of diabetes Mellitus patients is <7% HBA1C, and in selective patients <6.0%.Please refer to [place] [employer] Diabetic care guidelines for further information. 25 Desirable <150 Borderline high 150-199 High 200-499 Very High >500 26 Desirable <200 Borderline high 200-239 High >239 27 Low <40 Desirable: 40-60 High: >60 28 Desirable: <100 mg/dL Near Optimal: 100-129 mg/dL Borderline High: 130-159 mg/dL High: 160-189 mg/dL Very High: >189 mg/dL 29 Because ethnic data is not always readily available, this report includes an eGFR for both -Americans and non- Americans. The National Kidney Disease Education Program (NKDEP) does not endorse the use of the MDRD equation for patients that are not between the ages of 18 and 70, are , have extremes of body size, muscle mass, or nutritional status, or are non- or non-. According to the National Kidney Foundation, irrespective of diagnosis, the stage of the disease is based on the level of kidney function: Stage Description GFR(mL/min/1.73 m(2)) 1 Kidney damage with normal or decreased GFR 90 2 Kidney damage with mild decrease in GFR 60-89 3 Moderate decrease in GFR 30-59 4 Severe decrease in GFR 15-29 5 Kidney failure <15 (or dialysis) 30 Desirable <150 Borderline high 150-199 High 200-499 Very High >500 31 Desirable <200 Borderline high 200-239 High >239 32 Low <40 Desirable: 40-60 High: >60 33 Desirable: <100 mg/dL Near Optimal: 100-129 mg/dL Borderline High: 130-159 mg/dL High: 160-189 mg/dL Very High: >189 mg/dL 34 PT IS NOT FASTING WANTS LABS DONE REGARDLESS ATE SAUSAGE SANDWICH,BISCUIT, EGGS AND COFFEE 35 Because ethnic data is not always readily available, this report includes an eGFR for both -Americans and non- Americans. The National Kidney Disease Education Program (NKDEP) does not endorse the use of the MDRD equation for patients that are not between the ages of 18 and 70, are , have extremes of body size, muscle mass, or nutritional status, or are non- or non-. According to the National Kidney Foundation, irrespective of diagnosis, the stage of the disease is based on the level of kidney function: Stage Description GFR(mL/min/1.73 m(2)) 1 Kidney damage with normal or decreased GFR 90 2 Kidney damage with mild decrease in GFR 60-89 3 Moderate decrease in GFR 30-59 4 Severe decrease in GFR 15-29 5 Kidney failure <15 (or dialysis) 36 FASTING 37 Because ethnic data is not always readily available, this report includes an eGFR for both -Americans and non- Americans. The National Kidney Disease Education Program (NKDEP) does not endorse the use of the MDRD equation for patients that are not between the ages of 18 and 70, are , have extremes of body size, muscle mass, or nutritional status, or are non- or non-. According to the National Kidney Foundation, irrespective of diagnosis, the stage of the disease is based on the level of kidney function: Stage Description GFR(mL/min/1.73 m(2)) 1 Kidney damage with normal or decreased GFR 90 2 Kidney damage with mild decrease in GFR 60-89 3 Moderate decrease in GFR 30-59 4 Severe decrease in GFR 15-29 5 Kidney failure <15 (or dialysis) 38 FASTING 39 Desirable <150 Borderline high 150-199 High 200-499 Very High >500 40 Desirable <200 Borderline high 200-239 High >239 41 Low <40 Desirable: 40-60 High: >60 42 Unable to calculate LDL as triglyceride is > 400 43 *Ascorbic acid is present which may interfere with detection of blood. Procedures Date CPT Code Description Status Comment 07/01/2017 78251 EKG Tracing & Interpretation Completed 03/27/2017 34690 Inject/Drain Joint/Bursa Major Completed 01/23/2017 Diabetic Retinal Eye Exam Completed 07/13/2016 Diabetic Retinal Eye Exam Completed Document: 07/13/16 - Consult Ophthalmology/Henninge 04/17/2016 21035 Stress Test Completed 02/22/2016 97660 EKG Tracing & Interpretation Completed 09/22/2015 14580 Plethysmography Determination Completed Lung Volumes & Per Airway Resist 09/22/2015 88131 Pulmonary Completed Function><Bronchodil 07/19/2015 Diabetic Retinal Eye Exam Completed 02/18/2015 Diabetic Retinal Eye Exam Completed 09/27/2014 Diabetic Retinal Eye Exam Completed 12/26/2012 97513 Rad Exam; Foot Comp Completed 11/05/2012 94323 Rad Exam; Foot Limited Completed 10/17/2012 30300 Short Leg Cast Completed 10/17/2012 84732 FX Metatarsal Care Completed Encounters Type Date Location Provider CPT E/M Dx Office Visit 07/01/2017 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 M75.21 S46.001D M19.011 Office Visit 05/03/2017 11:15[place] [facility] [place] [address] M75.41 C.M.A. 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 Office Visit 01/16/2017 1:00p [facility] [place] [address] R22.41 C.M.A. S92.351D S92.341D Office Visit 12/04/2016 7:40a [facility] Internal Clifton Sloan, 98691 E11.42 Medicine - [address] M.D. E78.2 J45.909 E66.9 M72.2 Office Visit 06/29/2016 8:20a [facility] Internal Clifton Sloan, 37805 E11.42 Medicine - [address] M.D. J45.909 E78.2 E66.9 Office Visit 06/25/2016 1:00p [facility] Internal Medicine Natalie Knapp, 21241 R07.0 - Ayaan Sosa Office Visit 02/22/2016 10:30a [facility] Internal Medicine SUZANNE Mckee 86869 R07.9 - [address] J45.909 Office Visit 01/27/2016 9:00a [facility] Internal Clifton Sloan, 40834 J45.909 Medicine - [address] M.DAngely E11.42 E78.2 Z00.01 E66.9 Office Visit 09/29/2015 8:20a [facility] Internal Clifton Sloan M.D. 57136 J43.8 Medicine - [address] J45.909 B36.0 Office Visit 09/13/2015 8:00a [facility] Internal Clifton Sloan 76000 E11.42 Medicine - [address] M.DAngely E78.4 J44.9 Z12.5 Office Visit 07/19/2015 1:40p [facility] Gutierrez 95923 Q66.2 C.M.A. MNanette Office Visit 07/06/2015 9:20a [facility] [place] [address] K12.30 - [address] K12.0 Office Visit 06/13/2015 2:00p [facility] Internal Medicine Malik Antonio M.D. 24600 E11.9 - [address] E78.4 M79.671 E66.09 Office Visit 05/13/2015 10:40a [facility] Internal Medicine Malik Antonio M.D. 46942 E11.9 - [address] E78.4 Office Visit 11/02/2014 9:00a [facility] Internal Medicine Malik Antonio M.D. 85738 250.02 - [address] 272.4 719.47 278.00 Office Visit 09/08/2014 9:20a [facility] Internal Medicine Malik Antonio M.D. 77342 250.02 - [address] 272.4 709.8 719.47 Office Visit 06/04/2014 9:40a [facility] Internal Medicine Malik Antonio M.D. 14053 250.02 - [address] 272.4 709.8 719.47 729.5 Office Visit 12/25/2013 6:58p [facility], Cindi Sanders, 75065 682.2 Hospitalists N.P. 250.00 790.29 272.4 Office Visit 12/24/2013 6:58p [facility], Cindi SAngely Sanders, 31291 682.2 Hospitalists N.P. 790.29 250.00 272.4 Office Visit 12/23/2013 6:57p [facility], Cindi Sanders, 70690 682.2 Hospitalists N.P. 790.29 250.00 272.4 Office Visit 12/22/2013 6:56p [facility], Cindi Sanders, 71382 682.2 Hospitalists N.P. 790.29 250.00 272.4 Plan of Care Future Appointment(s):08/20/2017 8:30 am - Aure Osei M.D. at [facility] Internal Medicine - [id number]/29/2018 - Aure Osei M.D.L02.214 Cutaneous abscess of groinComments:keep the area clean and finish the antibiotics , follow up in 1 weekFollow up:1 week
--- OUTSIDE RECORDS SUMMARY | 2017-08-18 11:17 | XMS REPORT ---
:1970 External Reference #:[id number] Author Organization [facility] Address [address] [place] [address] Phone [phone] Care Team Providers Name Role Phone Clifton Sloan MD Primary Care Physician Unavailable Payers Type Date Identification Numbers Payment Provider Subscriber Commercial Expires: Policy Number: Hcpipa Lul Arriola 2014 [id number] Group Name: [address] [place] [address] Commercial Effective: 2014 Policy Number: [id number] Lavelle Arriola Group Number: [id number] [address] PayID: [id number] [place] [address] Problems Date Description Provider Status Onset: 06/04/2014 [...] Active Tablets 50-1000mg 60tabs take 1 Z01.818 [place] 2018 tablet by Luther, mouth M.D. twice a day Basaglar 07/01/ Active Solution 100Unit/ML 15unit Inject 20 Natalie Kwikpen 2018 Pen-Inject s Units SQ Cotton, hs M.D. Losartan 12/04/ Active Tablets 25mg 30tabs take one E11.42 [place] Potassium 2017 tablet Pachikara, daily. M.D. Fenofibrate 09/10/ Active Tablets 160mg 30tabs Take One Zsofia 2015 Tablet By [place] Mouth NUTRITIONALIST Every Day Omeprazole / Active Capsules 40mg 30caps Take One [place] 0000 DR Capsule By Luther, Mouth M.D. Every Day Sulfamethoxazo / Active Tablets 800-160mg bid Unknown le/Trimethopri 0000 m DS Cephalexin / Active Capsules 500mg bid Unknown 0000 Touje[place] Max 07/01/ Hx Solution 300Unit/ML 6ml 20 units Z01.818 [place] Solostar 2018 - [facility] M.[facility] 2018 Toujeo 07/01/ Hx Solution 300Unit/ML 3ml inject 20 [place] Solostar 2018 - Pen-Inject units [facility], 07/01/ under the M.D. 2018 skin at Pulmicort 02/21/ Hx Aerosol 180mcg/Act 1units inhale one J45.909 [place] Flexhaler 2016 - puff by [facility], 12/04/ mouth M.D. 2017 twice a day Atorvastatin 01/26/ Hx Tablets 20mg 30tabs take 1 E78.2 [place] Calcium 2015 - tablet at [facility], 06/25/ bedtime M.D. 2016 Ketoconazole 09/28/ Hx Cream 2% 120gm apply B36.0 [place] 2015 - twice a [facility], 06/29/ day M.D. 2017 Symbicort 09/25/ Hx Aerosol 160-4.5mcg 30.6gm 2 puff J45.909 Zsofia 2016 - /Act once a day [place], 04/17/ for 1 week NUTRITIONALIST 2017 then stop Proair HFA 09/25/ Hx Aerosol 108(90Base 25.5gm 2 puffs ih J45.909 [place] 2016 - ) mcg/Act every 6 [facility], 12/04/ hours as M.D. 2017 needed Metformin HCL 05/13/ Hx Tablets 1000mg 60tabs Take One [place] 2015 - Tablet By [facility], 07/01/ Mouth M.D. 2017 Twice A Day Glipizide ER 05/13/ Hx Tablets ER 10mg 30tabs Take One E11.9 [place] 2015 - 24HR Tablet By [facility], 07/01/ Mouth M.D. 2018 Every Day Fenofibrate [...] 36 Urine Appearance Cloudy 36 Urine Specific [place] 1.033 High 1.010-1.030 36 Urine pH 5.0 [...] and in selective patients <6.0%.Please refer to [place] [employer] Diabetic care guidelines for further information. 12 Desirable <150 Borderline high 150-199 High 200-499 Very High >500 13 Desirable <200 Borderline high 200-239 High >239 14 Low <40 Desirable: 40-60 High: >60 15 Unable to calculate LDL as triglyceride is > 400 16 Test Performed by: [place] [address] Commercial Credit Officer: Marek Rodriges II, M.D., Ph.D. 17 Serum levels of PSA measured using the Bhargav [place] DXI Hybritech immunoassay should not be interpreted [...] and in selective patients <6.0%.Please refer to [place] [employer] Diabetic care guidelines for further [...] Date CPT Code Description Status Comment 07/01/2017 99852 EKG Tracing & Interpretation Completed 03/27/2017 76083 Inject/Drain Joint/Bursa Major Completed 01/23/2017 Diabetic Retinal Eye Exam Completed 07/13/2016 Diabetic Retinal Eye Exam Completed Document: 07/13/16 - Consult Ophthalmology/Henninge 04/17/2016 92172 Stress Test Completed 02/22/2016 18691 EKG Tracing & Interpretation Completed 09/22/2015 87433 Plethysmography Determination Completed Lung Volumes & Per Airway Resist 09/22/2015 04020 Pulmonary Completed Function><Bronchodil 07/19/2015 Diabetic Retinal Eye Exam Completed 02/18/2015 Diabetic Retinal Eye Exam Completed 09/27/2014 Diabetic Retinal Eye Exam Completed 12/26/2012 07902 Rad Exam; Foot Comp Completed 11/05/2012 21537 Rad Exam; Foot Limited Completed 10/17/2012 14363 Short Leg Cast Completed 10/17/2012 55592 FX Metatarsal Care Completed Encounters Type Date Location Provider CPT E/M Dx Office Visit 07/01/2017 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 M75.21 S46.001D M19.011 Office Visit 05/03/2017 11:15[place] [facility] [place] [address] M75.41 C.M.A. 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 Office Visit 01/16/2017 1:00p [facility] [place] [address] R22.41 C.M.A. S92.351D S92.341D Office Visit 12/04/2016 7:40a [facility] Internal Clifton Sloan, 22398 E11.42 Medicine - [address] M.D. E78.2 J45.909 E66.9 M72.2 Office Visit 06/29/2016 8:20a [facility] Internal Clifton Sloan, 14990 E11.42 Medicine - [address] M.D. J45.909 E78.2 E66.9 Office Visit 06/25/2016 1:00p [facility] Internal Medicine Natalie Knapp, 37109 R07.0 - Ayaan Sosa Office Visit 02/22/2016 10:30a [facility] Internal Medicine SUZANNE Mckee 56180 R07.9 - [address] J45.909 Office Visit 01/27/2016 9:00a [facility] Internal Clifton Sloan, 28534 J45.909 Medicine - [address] M.DAngley E11.42 E78.2 Z00.01 E66.9 Office Visit 09/29/2015 8:20a [facility] Internal Clifton Sloan M.D. 19584 J43.8 Medicine - [address] J45.909 B36.0 Office Visit 09/13/2015 8:00a [facility] Internal Clifton Sloan 97409 E11.42 Medicine - [address] M.DAngely E78.4 J44.9 Z12.5 Office Visit 07/19/2015 1:40p [facility] Gut[facility] 42314 Q66.2 C.M.A. MNanette Office Visit 07/06/2015 9:20a [facility] [place] [address] K12.[address] - [address] K12.0 Office Visit 06/13/2015 2:00p [facility] Internal Medicine Malik Antonio M.D. 51930 E11.9 - [address] E78.4 M79.671 E66.09 Office Visit 05/13/2015 10:40a [facility] Internal Medicine Malik Antonio M.D. 43201 E11.9 - [address] E78.4 Office Visit 11/02/2014 9:00a [facility] Internal Medicine Malik Antonio M.D. 25951 250.02 - [address] 272.4 719.47 278.00 Office Visit 09/08/2014 9:20a [facility] Internal Medicine Malik Antonio M.D. 72256 250.02 - [address] 272.4 709.8 719.47 Office Visit 06/04/2014 9:40a [facility] Internal Medicine Malik Antonio M.D. 60702 250.02 - [address] 272.4 709.8 719.47 729.5 Office Visit 12/25/2013 6:58p [facility], Cindi Sanders, 25948 682.2 Hospitalists N.P. 250.00 790.29 272.4 Office Visit 12/24/2013 6:58p [facility], Cindi SAngely Sanders, 27832 682.2 Hospitalists N.P. 790.29 250.00 272.4 Office Visit 12/23/2013 6:57p [facility], Cindi Sanders, 65595 682.2 Hospitalists N.P. 790.29 250.00 272.4 Office Visit 12/22/2013 6:56p [facility], Cindi Sanders, 51651 682.2 Hospitalists N.P. 790.29 250.00 272.4 Plan of Care Future Appointment(s):08/20/2017 8:30 am - Aure Osei M.D. at [facility] Internal Medicine - [id number]/29/2018 - Aure Osei M.D.L02.214 Cutaneous abscess of groinComments:keep the area clean and finish the antibiotics , follow up in 1 weekFollow up:1 week
[2017-08-18] MEDS ORDERED: hydrOXYzine HCL TAB* 25 MG PO ONE (12:08)
[2017-08-18 12:16] VITALS: BP 139/86
--- NOTE | 2017-08-19 08:10 | ED ---
Skin Complaint - HPI Summary HPI Summary: Patient is a 47-year-old male who presents to the ED with multiple complaints. He states he feels he still has a piece of wood between his index and middle finger. He is also experiencing hives to the back. Denies any known tick bites or allergies. He has not been out in the [place] recently. Endorses itching without pain. Denies any other injuries, sweats, fevers or chills. He was treated here for a groin mass last week and feels this may all be connected. He states he has been seeing his primary for the mass. - History of Current Complaint Chief Complaint: EDRashSkinAbscess Time Seen by Provider: 08/18/17 11:51 Stated Complaint: ITCHY SKIN/[place] Hx Obtained From: Patient Onset/Duration: Started Hours Ago Skin Exposure Onset/Duration: Hours Ago Timing: Constant Onset Severity: Moderate Pain Intensity: 0 Pain Scale Used: 0-10 Numeric Skin Location: Other: - back Character: Pruritus Aggravating Symptom(s): Nothing Alleviating Symptom(s): Nothing Associated Signs & Symptoms: Negative - Allergy/Home Medications Allergies/Adverse Reactions: Allergies Allergy/AdvReac Type Severity Reaction Status Date / Time No Known Allergies Allergy Verified 08/11/17 12:28 PMH/Surg Hx/FS Hx/Imm Hx Previously Healthy: Yes Endocrine/Hematology History: Reports: Hx Diabetes - type 2 dm - well controlled Denies: Hx Thyroid Disease Cardiovascular History: Denies: Hx Hypertension, Hx Pacemaker/ICD, Hx Syncope Respiratory History: Denies: Hx Asthma, Hx Chronic Obstructive Pulmonary Disease (COPD) GI History: Reports: Hx Gastroesophageal Reflux Disease Denies: Hx Hiatal Hernia, Hx Ulcer History: Denies: Hx Renal Disease Musculoskeletal History: Denies: Hx Arthritis, Hx Gout Sensory History: Reports: Hx Contacts or Glasses - for reading Denies: Hx Hearing Aid Opthamlomology History: Reports: Hx Contacts or Glasses - for reading Neurological History: Reports: Hx Headaches Denies: Hx Seizures Psychiatric History: Reports: Hx Anxiety, Hx Depression Denies: Hx Panic Disorder - Immunization History Hx Pertussis Vaccination: No Immunizations Up to Date: Unable to Obtain/Confirm Infectious Disease History: No Infectious Disease History: Denies: Hx Hepatitis, Hx Human Immunodeficiency Virus (HIV), Traveled Outside the [place] in Last 30 Days - Family History Known Family History: Positive: Cardiac Disease, Diabetes - Social History Occupation: Employed Full-time Lives: Alone Alcohol Use: None Hx Substance Use: No Substance Use Type: Reports: None Hx Tobacco Use: Yes Smoking Status (MU): Former Smoker Type: Cigarettes Have You Smoked in the Last Year: Yes Review of Systems Constitutional: Negative Negative: Fever, Chills, Fatigue Negative: Photophobia, Blurred Vision Negative: Palpitations, Chest Pain Negative: Shortness Of Breath, Cough Genitourinary: Negative Positive: no symptoms reported, see HPI Negative: Arthralgia, Myalgia Positive: Rash Neurological: Negative All Other Systems Reviewed And Are Negative: Yes Physical Exam Triage Information Reviewed: Yes Vital Signs On Initial Exam: Initial Vitals Temp Pulse Resp BP Pulse Ox 97.5 F 113 20 124/81 99 08/18/17 11:08 08/18/17 11:08 08/18/17 11:08 08/18/17 11:08 08/18/17 11:08 Vital Signs Reviewed: Yes Appearance: Positive: Well-Appearing, Well-Nourished Skin: Positive: Warm, Skin Color Reflects Adequate Perfusion, Other - hives to the back Head/Face: Positive: Normal Head/Face Inspection Eyes: Positive: EOMI, TIM, Conjunctiva Clear Neck: Positive: Supple, No Lymphadenopathy Respiratory/Lung Sounds: Positive: Clear to Auscultation, Breath Sounds Present Cardiovascular: Positive: RRR, Pulses are Symmetrical in both Upper and Lower Extremities Musculoskeletal: Positive: Normal, Strength/ROM Intact Neurological: Positive: Speech Normal Psychiatric: Positive: Normal, Affect/Mood Appropriate Diagnostics - Vital Signs Vital Signs Temp Pulse Resp BP Pulse Ox 08/18/17 12:15 97.5 F 96 18 139/86 99 08/18/17 11:47 99 146/100 93 08/18/17 11:08 97.5 F 113 20 124/81 99 - Laboratory Lab Statement: Any lab studies that have been ordered have been reviewed, and results considered in the medical decision making process. Course/Dx - Course Course Of Treatment: Discussed treatment options with the patient. I do not feel there is a foreign body into the skin as I am not able to palpate any FB. He declines a x-ray at this time to look for FB and will follow up with his primary regarding this. He also states he is following with his primary regarding a groin lump found last week which she was seen in the ED. He has diffuse hives to the back which she states is itching, but is not painful. Denies any dysphagia, odynophagia or respiratory distress. Denies any SOB. Lungs CTA, RRR. I have given him hydroxyzine and a short course of prednisone. He will follow up with his primary as scheduled on Saturday. - Diagnoses Provider Diagnoses: Hives Discharge - Sign-Out/Discharge Documenting (check all that apply): Discharge/Admit/Transfer - Discharge Plan Condition: Stable Disposition: HOME Prescriptions: hydrOXYzine HCL TAB* [Atarax 25 MG TAB*] 25 mg PO TID PRN #15 tab PRN Reason: Itching predniSONE TAB* [Deltasone TAB*] 50 mg PO DAILY #4 tab Patient Education Materials: Urticaria (ED), Cold Compress or Soak (ED) Referrals: Clifton Sloan MD [Primary Care Provider] - Additional Instructions: Please follow up with PCP Prednisone once daily x 4 days Atarax up to three times daily - do not drive with this medication until you know how it affects you as it may make your drowsy - Billing Disposition and Condition Condition: STABLE Disposition: HOME
== END 2017-08-18 12:15 | disposition home or self-care (01) ==
LOC: ED 10:50
DX: L50.9 Urticaria, unspecified (principal); E11.9 Type 2 diabetes mellitus without complications; Z79.4 Long term (current) use of insulin; K21.9 Gastro-esophageal reflux disease without esophagitis; F41.9 Anxiety disorder, unspecified; F32.9 Major depressive disorder, single episode, unspecified; Z87.891 Personal history of nicotine dependence
CPT/HCPCS: 99282; A9270-GY

== ENCOUNTER 2017-10-10 11:16 | Emergency (ER) | payer OTHER ==
[2017-10-10] MEDS ORDERED: NS 0.9% 1000 ML* 2,000 ML IV ONE (11:49)
--- NOTE | 2017-10-10 11:53 | ED ---
Complex/Multi-Sys Presentation - HPI Summary HPI Summary: 47 y/o male presents to the ED c/o episodes of diarrhea > 10x starting last night. Associated sx: nausea, decreased appetite, severe, intermittent ABD pain aggravated with certain positions. ABD pain is a cramping pain relieved with diarrhea. Diarrhea described as watery, no blood noted. Pt ate past and meat sauce last night, heated frozen. PMHx PM Type II. - History Of Current Complaint Chief Complaint: EDNauseaVomitDiarrh Time Seen by Provider: 10/10/17 11:48 Hx Obtained From: Patient Onset/Duration: Sudden Onset, Lasting Hours, Still Present Timing: Intermittent, Lasting: Associated Signs And Symptoms: Positive: Nausea, Diarrhea, Abdominal Pain, Decreased Oral Intake - Allergies/Home Medications Allergies/Adverse Reactions: Allergies Allergy/AdvReac Type Severity Reaction Status Date / Time No Known Allergies Allergy Verified 08/11/17 12:28 Home Medications: Home Medications Albuterol HFA INHALER* [Ventolin HFA Inhaler*] 2 puff INH Q4H PRN 10/10/17 [ History Confirmed 10/10/17] Atorvastatin* [Lipitor*] 20 mg PO BEDTIME 10/10/17 [History Confirmed 10/10/17] Fenofibrate(NF) [Tricor(NF)] 160 mg PO DAILY 10/10/17 [History Confirmed ] Insulin Glargine,Hum.rec.anlog [Basaglar Kwikpen] 30 unit SC BEDTIME 10/10/17 [ History Confirmed 10/10/17] Losartan TAB* [Cozaar TAB*] 25 mg PO DAILY 10/10/17 [History Confirmed 10/10/17] Multivitamins/Minerals TAB* [Theragran/minerals TAB*] 1 tab PO DAILY 10/10/17 [ History Confirmed 10/10/17] Omeprazole CAP* [Prilosec CAP* 20 MG] 20 mg PO DAILY 10/10/17 [History Confirmed 10/10/17] Sitaglip/Metform XR50/1000(NR) [Janumet Xr (NR)] 1 tab PO BID 10/10/17 [ History Confirmed 10/10/17] PMH/Surg Hx/FS Hx/Imm Hx Previously Healthy: No Endocrine/Hematology History: Reports: Hx Diabetes - type 2 dm - well controlled Denies: Hx Thyroid Disease Cardiovascular History: Denies: Hx Hypertension, Hx Pacemaker/ICD, Hx Syncope Respiratory History: Denies: Hx Asthma, Hx Chronic Obstructive Pulmonary Disease (COPD) GI History: Reports: Hx Gastroesophageal Reflux Disease Denies: Hx Hiatal Hernia, Hx Ulcer History: Denies: Hx Renal Disease Musculoskeletal History: Denies: Hx Arthritis, Hx Gout Sensory History: Reports: Hx Contacts or Glasses - for reading Denies: Hx Hearing Aid Opthamlomology History: Reports: Hx Contacts or Glasses - for reading Neurological History: Reports: Hx Headaches Denies: Hx Seizures Psychiatric History: Reports: Hx Anxiety, Hx Depression Denies: Hx Panic Disorder Infectious Disease History: No Infectious Disease History: Denies: Hx Hepatitis, Hx Human Immunodeficiency Virus (HIV), Traveled Outside the [place] in Last 30 Days - Family History Known Family History: Positive: Cardiac Disease, Diabetes - Social History Alcohol Use: None Hx Substance Use: No Substance Use Type: Reports: None Hx Tobacco Use: Yes Smoking Status (MU): Former Smoker Type: Cigarettes Have You Smoked in the Last Year: Yes Review of Systems Negative: Fever, Chills Negative: Erythema Negative: Sore Throat Negative: Chest Pain Negative: Shortness Of Breath, Cough Positive: Abdominal Pain, Diarrhea, Nausea, Other - decreased appetite. Negative: Vomiting Negative: dysuria, hematuria Negative: Myalgia, Edema Negative: Rash Neurological: Other - no dizziness All Other Systems Reviewed And Are Negative: Yes Physical Exam - Summary Physical Exam Summary: Constitutional: Well-developed, Well-nourished, Alert. (-) Distressed Skin: Warm, Dry HENT: Normocephalic; Atraumatic Eyes: Conjunctiva normal Neck: Musculoskeletal ROM normal neck. (-) JVD, (-) Stridor, (-) Tracheal deviation Cardio: Rhythm regular, rate normal, Heart sounds normal; Intact distal pulses; The pedal pulses are 2+ and symmetric. Radial pulses are 2+ and symmetric. (-) Murmur Pulmonary/Chest wall: Effort normal. (-) Respiratory distress, (-) Wheezes, (-) Rales Abd: Soft, (-), epigastric tenderness, (-) Distension, (-) Guarding, (-) Rebound Musculoskeletal: (-) Edema Lymph: (-) Cervical adenopathy Neuro: Alert, Oriented x3 Psych: Mood and affect Normal Triage Information Reviewed: Yes Vital Signs On Initial Exam: Initial Vitals Temp Pulse Resp BP Pulse Ox 97.4 F 111 20 107/79 97 10/10/17 11:34 10/10/17 11:34 10/10/17 11:34 10/10/17 11:34 10/10/17 11:34 Vital Signs Reviewed: Yes Diagnostics - Vital Signs Vital Signs Temp Pulse Resp BP Pulse Ox 10/10/17 11:34 97.4 F 111 20 107/79 97 - Laboratory Result Diagrams: 10/10/17 11:59 10/10/17 11:59 Lab Statement: Any lab studies that have been ordered have been reviewed, and results considered in the medical decision making process. Complex Multi-Symp Course/Dx Assessment/Plan: Pt unable to produce stool in the ED. - Diagnoses Provider Diagnoses: Diarrhea Discharge - Sign-Out/Discharge Documenting (check all that apply): Patient Departure - Discharge Plan Condition: Stable Disposition: HOME Patient Education Materials: Acute Diarrhea (ED) Referrals: Clifton Sloan MD [Primary Care Provider] - 4 Days (PLEASE F/U IN 3-5 DAYS)
[2017-10-10 12:11] LABS: Hematocrit 46 % (42-52); Hemoglobin 16.2 g/dl (14.0-18.0); Mean Corpuscular HGB Conc 35 g/dl (31-36); Mean Corpuscular Hemoglobin 28 pg (27-31); Mean Corpuscular Volume 80 fL (80-94); Mean Platelet Volume 7.2 um3 (7.4-10.4); Platelet Count 200 10^3/ul (150-450); Red Blood Count 5.77 10^6/ul (4.00-5.40); Red Cell Distribution Width 13 % (10.5-15); White Blood Count 8.2 10^3/ul (3.5-10.8)
--- OUTSIDE RECORDS SUMMARY | 2017-10-10 12:18 | XMS REPORT ---
:1970 External Reference #:[id number] Author Organization [facility] Address [address] [place] [address] Phone [phone] Care Team Providers Name Role Phone Clifton Sloan MD Primary Care Physician Unavailable Payers Type Date Identification Numbers Payment Provider Subscriber Commercial Expires: Policy Number: Hcpipa Lul Arriola 2014 [id number] Group Name: [place] [address] Commercial Effective: 2014 Policy Number: [id number] Lavelle Arriola Group Number: [id number] [address] PayID: [id number] [place] [address] Problems Date Description Provider Status Onset: 06/04/2014 [...] Sun MD Active of r shoulder, subs Onset: 09/23/2017 Essential hypertension Clifton Sloan M.D. Active Onset: 09/23/2017 Gastroesophageal reflux disease Clifton Sloan M.D. Active Family History Date Family Member(s) Problem(s) Comments [...] Form Strength Qnty SIG Indications Ordering Provider Corry 09/23/ Active Solution 100Unit/ML 30ml 30 units E11.42 [facility] Kwikpen 2018 Pen-Inject at bedtime Ian Sloan Atorvastatin 09/23/ Active Tablets 20mg 30tabs take 1 E78.2 [facility] Calcium 2018 tablet at Luther, bedtime M.DAngely BD Pen 07/02/ Active Misc 31G X 5 mm 300uni use with Clifton Needle/Mini/Ul 2018 ts Basaglar Luther, trafine/31G X daily M.D. 05/31" Janumet 07/01/ Active Tablets 50-1000mg 60tabs take 1 Z01.818 Clifton 2018 tablet by Pachikara, mouth M.D. twice a day Losartan 12/04/ Active Tablets 25mg 30tabs take one E11.42 [facility] Potassium 2017 tablet Pachikara, daily. M.D. Hydroxyzine / Active Tablets 25mg up to tid Unknown HCL 0000 prn Multi-Vitamin 00/ Active Tablets 1 by mouth Unknown 0000 every day Probiotic / Active Capsules 1 by mouth Unknown Daily 0000 every day Vitamin C / Active Tablets 1000mg 1 by mouth Unknown 0000 every day Omeprazole / Active Capsules 40mg 30caps take one Clifton [address] [facility] day Toujeo Max 07/01/ Hx Solution 300Unit/ML 6ml 20 units Z01.818 [facility] Solostar 2018 - Pen-Inject hs Pachikara, 07/01/ M.D. 2018 Toujeo 07/01/ Hx Solution 300Unit/ML 3ml inject 20 Cl[facility] Solostar 2018 - Pen-Inject units Arlethika, 07/01/ under the M.D. 2018 skin at Basagloh 07/01/ Hx Solution 100Unit/ML 15unit Inject 20 Natalie Loudelorispen 2018 - Pen-Inject s Units SQ Cotton, 09/23/ hs M.D. 2018 Pulmicort 02/21/ Hx Aerosol 180mcg/Act 1units inhale one J45.909 [facility] Flexhaler 2016 - puff by [facility], 12/04/ mouth M.D. 2016 twice a day Atorvastatin 01/26/ Hx Tablets 20mg 30tabs take 1 E78.2 [place] Calcium 2016 - tablet at [facility], 06/25/ bedtime M.D. 2017 Ketoconazole 09/28/ Hx Cream 2% 120gm apply B36.0 Clifton 2016 - twice a [facility], 06/29/ day M.D. 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 2017 needed Metformin HCL 05/13/ Hx Tablets 1000mg 60tabs Take One Clifton 2016 - Tablet By [facility], 07/01/ Mouth M.D. 2018 Twice A Day Glipizide ER 05/13/ Hx Tablets ER 10mg 30tabs Take One E11.9 Clifton 2015 - 24HR Tablet By Luther, 07/01/ Mouth M.D. 2017 Every Day Fenofibrate 09/10/ Hx Tablets 160mg 30tabs take one Clifton 2014 - tablet by Luther, 09/23/ mouth M.D. 2017 every day Fenofibrate 09/08/ Hx Tablets 145mg 90tabs 1 by mouth 272.4 Malik 2014 - every day Antonio, M.D. 2014 Glipizide ER 06/04/ Hx Tablets ER 5mg 60tabs 1 by mouth E11.9 Malik 2014 - 24HR every day Paco, M.D. 2015 Metformin HCL / Hx Tablets 500mg 60tabs 1 tablet Malik - by mouth Antonio, 05/13/ twice a M.D. 2015 day Sulfamethoxazo / Hx Tablets 800-160mg bid Unknown le/Trimethopri - DS 2017 Cephalexin / Hx Capsules 500mg bid Unknown - 2017 Prednisone / Hx Tablets 50mg once a day Unknown 0000 - 2017 Medications Administered in Office Medication Date Status Form Strength Qnty SIG Indications Ordering Provider Depomedrol Administered Injection Giorgio 40MG 018 MD Corinne Vital Signs Date Vital Result Comment 09/23/2017 Height 72 inches 6'0" Weight 230.00 lb Heart Rate 102 /min BP Systolic 122 mmHg BP Diastolic 68 mmHg O2 % BldC Oximetry 98 % BMI (Body Mass Index) 31.2 kg/m2 08/21/2017 Height 72 inches 6'0" Weight 233.00 lb Heart Rate 74 /min BP Systolic 140 mmHg BP Diastolic 98 mmHg Respiratory Rate 12 /min Body Temperature 97.4 F Pain Level 2 BMI (Body Mass Index) 31.6 kg/m2 08/19/2017 Height 72 inches 6'0" Weight 232.00 lb Heart Rate 113 /min BP Systolic Sitting 132 mmHg BP Diastolic Sitting 90 mmHg Pain Level 0 O2 % BldC Oximetry 95 % BMI (Body Mass Index) 31.5 kg/m2 08/13/2017 Height 72 inches 6'0" Weight 235.00 [...] Result H/L Range Note Laboratory test finding 09/23/2017 Hemoglobin A1c 13.9 High 5-7 Laboratory test finding 07/01/2017 Hemoglobin A1c 10.9 [...] >60 36 Egfr 129.4 >60 36, 37 Urine Microalbumin Random 06/04/2014 Ur Microalbumin (mg/L) 44.0 mg/L 36 Urine Creatinine 175.04 mg/dL 36 Urine Microalbumin/Creatinine 25.1 Less Than 31 36 Urinalysis Profile 06/04/2014 Urine Color Yellow 36 Urine Appearance Cloudy 36 Urine Specific [place] 1.033 High 1.010-1.030 36 Urine pH 5.0 5-9 36 Urine Urobilinogen Negative Negative 36 Urine Ketones 1+ Negative 36 Urine Protein Negative Negative 36 Urine Leukocytes Negative Negative 36 Urine Blood Negative Negative 36 * * Negative 36, 38 Urine Nitrite Negative Negative 36 Urine Bilirubin Negative Negative 36 Urine Glucose 3+(>=500 mg/dL) Negative 36 Laboratory test finding 06/04/2014 Hemoglobin A1c 11.4 [...] 06/04/2014 TSH (Thyroid 0.86 IU/mL 0.34-5.60 36, 39 finding Stimulating Horm) Lipid Profile 06/04/2014 Triglycerides 844 mg/dL 36, 40 (Trig/Chol/HDL) Cholesterol 307 mg/dL 36, 41 HDL Cholesterol 37.3 mg/dL 36, 42 LDL Cholesterol (SEE NOTE) mg/dL 36, 43 1 Desirable: <150 Borderline High: 150-199 High: [...] and in selective patients <6.0%.Please refer to [place] [employer] Diabetic care guidelines for further information. 12 Desirable <150 Borderline high 150-199 High 200-499 Very High >500 13 Desirable <200 Borderline high 200-239 High >239 14 Low <40 Desirable: 40-60 High: >60 15 Unable to calculate LDL as triglyceride is > 400 16 Test Performed by: [address] [address] Drip Pumper: Marek Rodriges II, M.D., Ph.D. 17 Serum levels of PSA measured using the Bhargav Doujiao DXI Hybritech immunoassay should not be interpreted [...] and in selective patients <6.0%.Please refer to [place] [employer] Diabetic care guidelines for further [...] 5 Kidney failure <15 (or dialysis) 38 *Ascorbic acid is present which may interfere with detection of blood. 39 FASTING 40 Desirable <150 Borderline high 150-199 High 200-499 Very High >500 41 Desirable <200 Borderline high 200-239 High >239 42 Low <40 Desirable: 40-60 High: >60 43 Unable to calculate LDL as triglyceride is > 400 Procedures Date CPT Code Description Status Comment 07/01/2017 08655 EKG Tracing & Interpretation Completed 03/27/2017 74256 Inject/Drain Joint/Bursa Major Completed W/O US 01/23/2017 Diabetic Retinal Eye Exam Completed 08/08/2016 Diabetic Retinal Eye Exam Completed 07/13/2016 Diabetic Retinal Eye Exam Completed Document: 07/13/16 - Consult Ophthalmology/Luisito 04/17/2016 32442 Stress Test Completed 02/22/2016 68271 EKG Tracing & Interpretation Completed 09/22/2015 37528 Plethysmography Determination Completed Lung Volumes & Per Airway Resist 09/22/2015 20836 Pulmonary Function><Bronchodil Completed 07/19/2015 Diabetic Retinal Eye Exam Completed 02/18/2015 Diabetic Retinal Eye Exam Completed 09/27/2014 Diabetic Retinal Eye Exam Completed 12/26/2012 44584 Rad Exam; Foot Comp Completed 11/05/2012 54616 Rad Exam; Foot Limited Completed 10/17/2012 64614 Short Leg Cast Completed 10/17/2012 83466 FX Metatarsal Care Completed Encounters Type Date Location Provider CPT E/M Dx Office Visit 08/21/2017 [facility] Catalina Tyrel, 28499 M79.642 1:45p Of C.M.A. RPA-C Office Visit 08/19/2017 [facility] Internal Medicine Aure Osei, 29273 L02.214 11:10a - Jordan Sosa M79.642 R21 Office Visit 08/13/2017 11:10a [facility] Internal Medicine Aure Osei 13756 L02.214 - Jordan Sosa Office Visit 07/01/2017 8:00a [facility] Internal Medicine Clifton Sloan, 04699 Z01.818 - [place] [address] Sosa E11.42 Office Visit 06/14/2017 9:45a [facility] [place] [address] M75.41 C.M.A. M75.21 S46.001D M19.011 Office Visit 05/03/2017 11:15a [facility] [place] [address] M75.41 C.M.A. 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 Office Visit 01/16/2017 1:00p [facility] [place] [address] R22.41 C.M.A. S92.351D S92.341D Office Visit 12/04/2016 7:40a [facility] Internal Clifton Sloan 64959 E11.42 Medicine - [address] M.D. E78.2 J45.909 E66.9 M72.2 Office Visit 06/29/2016 8:20a [facility] Internal Clifton Sloan, 63422 E11.42 Medicine - [address] M.D. J45.909 E78.2 E66.9 Office Visit 06/25/2016 1:00p [facility] Internal Medicine Natalie Ra, 84860 R07.0 - Ayaan Sosa Office Visit 02/22/2016 10:30a [facility] Internal Medicine Neetu Hooker, [facility] [address] R07.9 - [address] J45.909 Office Visit 01/27/2016 9:00a [facility] Internal [facility], 58394 J45.909 Medicine - [address] M.DAngely E11.42 E78.2 Z00.01 E66.9 Office Visit 09/29/2015 8:20a [facility] Internal Clifton Sloan M.D. 77596 J43.8 Medicine - [address] J45.909 B36.0 Office Visit 09/13/2015 8:00a [facility] Internal Clifton Luther, 95559 E11.42 Medicine - [address] M.DAngely E78.4 J44.9 Z12.5 Office Visit 07/19/2015 1:40p [facility] Gutierrez, [address]4526 Q66.2 CIrwin Sosa Office Visit 07/06/2015 9:20a [facility] [place] [address] K12.30 - [address] K12.0 Office Visit 06/13/2015 2:00p [facility] Internal Medicine Malik Antonio M.D. 45748 E11.9 - [address] E78.4 M79.671 E66.09 Office Visit 05/13/2015 10:40a [facility] Internal Medicine Malik Antonio M.D. 41649 E11.9 - [address] E78.4 Office Visit 11/02/2014 9:00a [facility] Internal Medicine Malik Antonio M.D. 34163 250.02 - [address] 272.4 719.47 278.00 Office Visit 09/08/2014 9:20a [facility] Internal Medicine Malik Antonio M.D. 69733 250.02 - [address] 272.4 709.8 719.47 Office Visit 06/04/2014 9:40a [facility] Internal Medicine Mailk Antonio M.D. 41595 250.02 - [address] 272.4 709.8 719.47 729.5 Office Visit 12/25/2013 6:58p [facility], Cindi SAngely Foster, 04318 682.2 Hospitalists N.P. 250.00 790.29 272.4 Office Visit 12/24/2013 6:58p [facility], Cindi S. Foster, 13438 682.2 Hospitalists N.P. 790.29 250.00 272.4 Office Visit 12/23/2013 6:57p [facility], Cindi S. Foster, 57681 682.2 Hospitalists N.P. 790.29 250.00 272.4 Office Visit 12/22/2013 6:56p [facility], Cindi S. Foster, 00110 682.2 Hospitalists N.P. 790.29 250.00 272.4 Plan of Care Future Appointment(s):10/03/2017 8:40 am - Clifton Sloan M.D. at [facility] Internal Medicine - [address]/23/2017 - Clifton Sloan M.D.E11.42 Type 2 diabetes mellitus with diabetic polyneuropathyNew Medication:Basaglar Kwikpen 100 Unit/MLNew Labs:Urine Microalbumin RandomFollow up:1 weekE78.2 Mixed hyperlipidemiaNew Medication:Atorvastatin Calcium 20 mgComments:Your goal LDL is 70. You are not meeting this goal. Start atorvastatinGoals:Exercising 30 minutes 5 times a week will help raise HDL (good cholesterol) and lower LDL ( bad cholesterol.) You need to lose 1-2 pounds per month to move towards a BMI ( body mass index) of less than 25.K21.9 Gastro-esophageal reflux disease without kmwlltdrxmaW78.9 Disorder of the skin and subcutaneous tissue, unspecifiedReferral:Ryder Castellanos MD, Surgery,General
--- OUTSIDE RECORDS SUMMARY | 2017-10-10 12:18 | XMS REPORT ---
:1970 External Reference #:[id number] Author Organization [facility] Address [address] [place] [address] Phone [phone] Care Team Providers Name Role Phone Clifton Sloan MD Primary Care Physician Unavailable Payers Type Date Identification Numbers Payment Provider Subscriber Commercial Expires: Policy Number: Hcpipa Lul Arriola 2014 [id number] Group Name: [place] [address] Commercial Effective: 2014 Policy Number: [id number] Lavelle Arriola Group Number: [id number] [address] PayID: [id number] [place] [address] Problems Date Description Provider Status Onset: 06/04/2014 [...] Form Strength Qnty SIG Indications Ordering Provider Basaglsapna 10/08/ Active Solution 100Unit/ML 30ml 40 units E11.42 Clifton Nunez Pen-Inject at bedtime Ian Sloan Rosuvastatin 10/08/ Active Tablets 10mg 30tabs take 1 E78.2 Clifton Calcium 2018 tablet by Luther, mouth M.DAngely every evening Ventolin HFA 10/08/ Active Aerosol 108(90Base 8gm 2 puffs by J45.909 Clifton Nunez ) mcg/Act mouth four Arlethika, times a M.D. day as needed Omeprazole 10/08/ Active Capsules 20mg 30caps 1 by mouth K21.[address] every day Luther, am empty M.D. stomach BD Pen 07/02/ Active Misc 31G X 5 mm 300uni use with Clifton Needle/Mini/Ul campos Ramos/31G X daily M.D. 3/16" Janumet 07/01/ Active Tablets 50-1000mg 60tabs take 1 Z01.818 Clifton 2018 tablet by Pachikara, mouth M.D. twice a day Losartan 12/04/ Active Tablets 25mg 30tabs take one E11.42 Clifton Potassium 2017 tablet Pachikara, daily. M.D. Hydroxyzine / Active Tablets 25mg up to tid Unknown HCL 0000 prn Multi-Vitamin / Active Tablets 1 by mouth Unknown 0000 every day Probiotic / Active Capsules 1 by mouth Unknown Daily 0000 every day Vitamin C / Active Tablets 1000mg 1 by mouth Unknown 0000 every day Basaglar 09/23/ Hx Solution 100Unit/ML 30ml 30 units E11.42 Clifton Rutledgepen 2018 - Pen-Inject at bedtime [facility], 10/08/ M.D. 2017 Atorvastatin 09/23/ Hx Tablets 20mg 30tabs take 1 E78.2 Clifton Calcium 2017 - tablet at [facility], 10/08/ bedtime M.D. 2017 Toujeo Max 07/01/ Hx Solution 300Unit/ML 6ml 20 units Z01.818 Clifton Doddpeyton 2018 - Pen-Inject hs [facility], 07/01/ M.D. 2018 Toujeo 07/01/ Hx Solution 300Unit/ML 3ml inject 20 Clfiton Doddjomarar 2018 - [facility] under the M.D. 2018 skin at [facility] 07/01/ Hx Solution 100Unit/ML 15unit Inject 20 Natalie Gusman 2018 - Pen-Inject s Units SQ Cotton, 09/23/ hs M.D. 2018 Pulmicort 02/21/ Hx Aerosol 180mcg/Act 1units inhale one J45.909 Clifton Flexhaler 2015 - puff by Pachikara, 12/04/ mouth M.D. 2017 twice a day Atorvastatin 01/26/ Hx Tablets 20mg 30tabs take 1 E78.2 Clifton Calcium 2015 - tablet at [facility], 06/25/ bedtime M.D. 2017 Ketoconazole 09/28/ Hx Cream 2% 120gm apply B36.0 Clifton 2015 - twice a Pachikara, 06/29/ day M.D. 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 2016 needed Metformin HCL 05/13/ Hx Tablets 1000mg 60tabs Take One Clifton 2015 - Tablet By Luther, 07/01/ Mouth M.D. 2017 Twice A Day [...] mouth 272.4 Malik 2014 - every day Paco, 09/10/ M.D. 2014 Glipizide ER 06/04/ Hx Tablets ER 5mg 60tabs 1 by mouth E11.9 Malik 2014 - 24HR every day Paco, 05/13/ M.D. 2015 Metformin HCL / Hx Tablets 500mg 60tabs 1 tablet Malik - by mouth Paco, 05/13/ twice a M.D. 2015 day Sulfamethoxazo / Hx Tablets 800-160mg bid Unknown le/Trimethopri - DS 2017 Cephalexin / Hx Capsules 500mg bid Unknown - 2017 Prednisone / Hx Tablets 50mg once a day Unknown - 2017 Omeprazole / Hx Capsules 40mg 30caps take one Clifton - DR capsule by Luther, 10/08/ mouth M.D. 2017 every day Medications Administered in Office Medication Date Status Form Strength Qnty SIG Indications Ordering Provider Depomedrol Administered Injection Giorgio 40MG 018 MD Corinne Vital Signs Date Vital Result Comment 10/08/2017 Height 72 inches 6'0" Weight 228.00 lb Heart Rate 107 /min BP Systolic Sitting 120 mmHg BP Diastolic Sitting 88 mmHg Body Temperature 97.9 F O2 % BldC Oximetry 98 % BMI (Body Mass Index) 30.9 kg/m2 09/23/2017 Height 72 inches 6'0" Weight 230.00 [...] Test Date Test Result H/L Range Note Lipid Profile (Trig/Chol/HDL) 10/02/2017 Triglycerides 98 mg/dL 1 Cholesterol 222 mg/dL 2 HDL Cholesterol 45.3 mg/dL 3 LDL Cholesterol 157 mg/dL 4 Laboratory test finding 09/23/2017 Hemoglobin A1c 13.9 High 5-7 Laboratory test finding 07/01/2017 Hemoglobin A1c 10.9 High 5-7 Laboratory test finding 04/11/2017 Hemoglobin A1c 10.8 High 5-7 Lipid Profile (Trig/Chol/HDL) 04/10/2017 Triglycerides 196 mg/dL 5 Cholesterol 261 mg/dL 6 HDL Cholesterol 40.0 mg/dL 7 LDL Cholesterol 182 mg/dL 8 Laboratory test finding 03/26/2017 Creatine Kinase(CK) 85 U/L 10-223 C Reactive Protein 7.60 mg/L High < 5.00 9 Erythrocyte Sed Rate 14 mm/Hr 0-14 Comp [...] Egfr Non- 103.6 >60 Egfr 133.3 >60 10 Laboratory test finding 12/04/2016 Hemoglobin A1c 9.4 High 5-7 Lipid Profile (Trig/Chol/HDL) 12/03/2016 Triglycerides 399 mg/dL 11 Cholesterol 270 mg/dL 12 HDL Cholesterol 37.1 mg/dL 13 LDL Cholesterol 153 mg/dL 14 Laboratory test finding 06/25/2016 Rapid Group A Strep neg Urine Microalbumin Random 06/25/2016 Urine Creatinine 179.57 mg/dL Ur Microalbumin (mg/L) 16.3 mg/L Urine Microalbumin/Creatinine 9.0 ug/mg <31 Laboratory test 06/25/2016 Hemoglobin A1c (Glyco 9.9 % High Less than 6.0 15 finding HGB) Lipid Profile 06/25/2016 Triglycerides 745 mg/dL 16 (Trig/Chol/HDL) Cholesterol 306 mg/dL 17 HDL Cholesterol 38.4 mg/dL 18 LDL Cholesterol (SEE NOTE) mg/dL 19 Laboratory test 01/27/2016 Hemoglobin A1c 8.9 High 5-7 finding Laboratory test 01/18/2016 Alpha 1 Antitrypsin 136 mg/dL 100 - 190 20 finding A1a Laboratory test 01/18/2016 PSA Screening 0.726 ng/mL 0-4.000 21 finding Comp Metabolic Panel 01/18/2016 Sodium 136 [...] Egfr Non- 78.6 >60 Egfr 101.1 >60 22 Lipid Profile (Trig/Chol/HDL) 01/18/2016 Triglycerides 259 mg/dL 23 Cholesterol 243 mg/dL 24 HDL Cholesterol 39.2 mg/dL 25 LDL Cholesterol 152 mg/dL 26 Comp Metabolic Panel 09/08/2015 Sodium 133 mmol/L [...] Egfr Non- 93.2 >60 Egfr 119.9 >60 27 Laboratory test 09/08/2015 Hemoglobin A1c (Glyco 8.1 % High Less than 6.0 28 finding HGB) Lipid Profile 09/08/2015 Triglycerides 213 mg/dL 29 (Trig/Chol/HDL) Cholesterol 208 mg/dL 30 HDL Cholesterol 39.5 mg/dL 31 LDL Cholesterol 126 mg/dL 32 Comp Metabolic Panel 06/07/2015 Sodium 134 mmol/L [...] Egfr Non- 84.7 >60 Egfr 108.9 >60 33 Laboratory test finding 05/13/2015 Hemoglobin A1c 9.7 High 5-7 Lipid Profile (Trig/Chol/HDL) 05/10/2015 Triglycerides 258 mg/dL 34 Cholesterol 247 mg/dL 35 HDL Cholesterol 36.0 mg/dL 36 LDL Cholesterol 159 mg/dL 37 Laboratory test finding 11/02/2014 Glucose Fingerstick 215 Laboratory test finding 11/02/2014 Hemoglobin A1c 8.6 High 5-7 Comp Metabolic Panel 10/27/2014 Sodium 134 mmol/L 133-145 38 Potassium 4.4 mmol/L 3.5-5.0 38 Chloride 99 mmol/L Low 101-111 38 Co2 Carbon Dioxide 25 mmol/L 22-32 38 Anion Gap 10 mmol/L 2-11 38 Glucose 307 mg/dL High 70-100 38 Blood Urea Nitrogen 14 mg/dL 6-24 38 Creatinine 0.92 mg/dL 0.67-1.17 38 BUN/Creatinine Ratio 15.2 8-20 38 Calcium 9.1 mg/dL 8.6-10.3 38 Total Protein 6.9 g/dL 6.4-8.9 38 Albumin 4.3 g/dL 3.2-5.2 38 Globulin 2.6 g/dL 2-4 38 Albumin/Globulin Ratio 1.7 1-3 38 Total Bilirubin 0.40 mg/dL 0.2-1.0 38 Alkaline Phosphatase 60 U/L 34-104 38 Alt 43 U/L 7-52 38 Ast 18 U/L 13-39 38 Egfr Non- 89.0 >60 38 Egfr 114.4 >60 38, 39 Comp Metabolic Panel 06/04/2014 Sodium 130 mmol/L Low 133-145 40 Potassium 4.1 mmol/L 3.5-5.0 40 Chloride 97 mmol/L Low 101-111 40 Co2 Carbon Dioxide 26 mmol/L 22-32 40 Anion Gap 7 mmol/L 2-11 40 Glucose 289 mg/dL High 70-100 40 Blood Urea Nitrogen 11 mg/dL 6-24 40 Creatinine 0.83 mg/dL 0.67-1.17 40 BUN/Creatinine Ratio 13.3 8-20 40 Calcium 9.2 mg/dL 8.6-10.3 40 Total Protein 7.1 g/dL 6.4-8.9 40 Albumin 4.4 g/dL 3.2-5.2 40 Globulin 2.7 g/dL 2-4 40 Albumin/Globulin Ratio 1.6 1-3 40 Total Bilirubin 0.60 mg/dL 0.2-1.0 40 Alkaline Phosphatase 90 U/L 34-104 40 Alt 25 U/L 7-52 40 Ast 16 U/L 13-39 40 Egfr Non- 100.6 >60 40 Egfr 129.4 >60 40, 41 Urine Microalbumin Random 06/04/2014 Ur Microalbumin (mg/L) 44.0 mg/L 40 Urine Creatinine 175.04 mg/dL 40 Urine Microalbumin/Creatinine 25.1 Less Than 31 40 Urinalysis Profile 06/04/2014 Urine Color Yellow 40 Urine Appearance Cloudy 40 Urine Specific [place] 1.033 High 1.010-1.030 40 Urine pH 5.0 5-9 40 Urine Urobilinogen Negative Negative 40 Urine Ketones 1+ Negative 40 Urine Protein Negative Negative 40 Urine Leukocytes Negative Negative 40 Urine Blood Negative Negative 40 * * Negative 40, 42 Urine Nitrite Negative Negative 40 Urine Bilirubin Negative Negative 40 Urine Glucose 3+(>=500 mg/dL) Negative 40 Laboratory test finding 06/04/2014 Hemoglobin A1c 11.4 High 5-7 CBC Auto Diff 06/04/2014 White Blood Count 7.9 10^3/uL 4.8-10.8 40 Red Blood Count 6.10 10^6/uL High 4.0-5.4 40 Hemoglobin 17.4 g/dL 14.0-18.0 40 Hematocrit 51 % 42-52 40 Mean Corpuscular Volume 83 fL 80-94 40 Mean Corpuscular Hemoglobin 29 pg 27-31 40 Mean Corpuscular HGB Conc 34 g/dL 31-36 40 Red Cell Distribution Width 13 % 10.5-15 40 Platelet Count 203 10^3/uL 150-450 40 Mean Platelet Volume 8 um3 7.4-10.4 40 Abs Neutrophils 4.8 10^3/uL 1.5-7.7 40 Abs Lymphocytes 1.9 10^3/uL 1.0-4.8 40 Abs Monocytes 0.9 10^3/uL High 0-0.8 40 Abs Eosinophils 0.1 10^3/uL 0-0.6 40 Abs Basophils 0 10^3/uL 0-0.2 40 Abs Nucleated RBC 0.02 10^3/uL 40 Granulocyte % 61.3 % 38-83 40 Lymphocyte % 24.5 % Low 25-47 40 Monocyte % 12.0 % High 1-9 40 Eosinophil % 1.7 % 0-6 40 Basophil % 0.5 % 0-2 40 Nucleated Red Blood Cells % 0.3 40 Laboratory test 06/04/2014 TSH (Thyroid 0.86 IU/mL 0.34-5.60 40, 43 finding Stimulating Horm) Lipid Profile 06/04/2014 Triglycerides 844 mg/dL 40, 44 (Trig/Chol/HDL) Cholesterol 307 mg/dL 40, 45 HDL Cholesterol 37.3 mg/dL 40, 46 LDL Cholesterol (SEE NOTE) mg/dL 40, 47 1 Desirable: <150 Borderline High: 150-199 High: 200-499 Very High: >500 2 Desirable: <200 Borderline High: 200-239 High: >239 3 Low: <40 Desirable: 40-60 High: >60 4 Desirable: <100 Near Optimal: 100-129 Borderline High: 130-159 High: 160-189 Very High: >189 5 Desirable: <150 Borderline High: 150-199 High: 200-499 Very High: >500 6 Desirable: <200 Borderline High: 200-239 High: >239 7 Low: <40 Desirable: 40-60 High: >60 8 Desirable: <100 Near Optimal: 100-129 Borderline High: 130-159 High: 160-189 Very High: >189 9 Acute inflammation: >10.00 10 Because ethnic data is not always readily [...] 15-29 5 Kidney failure <15 (or dialysis) 11 Desirable <150 Borderline high 150-199 High 200-499 Very High >500 12 Desirable <200 Borderline high 200-239 High >239 13 Low <40 Desirable: 40-60 High: >60 14 Desirable: <100 mg/dL Near Optimal: 100-129 mg/dL Borderline High: 130-159 mg/dL High: 160-189 mg/dL Very High: >189 mg/dL 15 Therapeutic target for the treatment of diabetes Mellitus patients is <7% HBA1C, and in selective patients <6.0%.Please refer to [place] [employer] Diabetic care guidelines for further information. 16 Desirable <150 Borderline high 150-199 High 200-499 Very High >500 17 Desirable <200 Borderline high 200-239 High >239 18 Low <40 Desirable: 40-60 High: >60 19 Unable to calculate LDL as triglyceride is > 400 20 Test Performed by: [place] [address] [employer] Supervisor: Marek Rodriges II, M.D., Ph.D. 21 Serum levels of PSA measured using the Bhargav Matthew DXI Hybritech immunoassay should not be interpreted as absolute evidence of the presence or absence of disease. The PSA value should be used in conjunction with other pertinent clinical diagnostic procedures. The values obtained with different assay methods or kits cannot be used interchangeably. 22 Because ethnic data is not always readily [...] 15-29 5 Kidney failure <15 (or dialysis) 23 Desirable <150 Borderline high 150-199 High 200-499 Very High >500 24 Desirable <200 Borderline high 200-239 High >239 25 Low <40 Desirable: 40-60 High: >60 26 Desirable: <100 mg/dL Near Optimal: 100-129 mg/dL Borderline High: 130-159 mg/dL High: 160-189 mg/dL Very High: >189 mg/dL 27 Because ethnic data is not always readily [...] 15-29 5 Kidney failure <15 (or dialysis) 28 Therapeutic target for the treatment of diabetes Mellitus patients is <7% HBA1C, and in selective patients <6.0%.Please refer to [place] [employer] Diabetic care guidelines for further information. 29 Desirable <150 Borderline high 150-199 High 200-499 Very High >500 30 Desirable <200 Borderline high 200-239 High >239 31 Low <40 Desirable: 40-60 High: >60 32 Desirable: <100 mg/dL Near Optimal: 100-129 mg/dL Borderline High: 130-159 mg/dL High: 160-189 mg/dL Very High: >189 mg/dL 33 Because ethnic data is not always readily [...] 15-29 5 Kidney failure <15 (or dialysis) 34 Desirable <150 Borderline high 150-199 High 200-499 Very High >500 35 Desirable <200 Borderline high 200-239 High >239 36 Low <40 Desirable: 40-60 High: >60 37 Desirable: <100 mg/dL Near Optimal: 100-129 mg/dL Borderline High: 130-159 mg/dL High: 160-189 mg/dL Very High: >189 mg/dL 38 PT IS NOT FASTING WANTS LABS DONE REGARDLESS ATE SAUSAGE SANDWICH,BISCUIT, EGGS AND COFFEE 39 Because ethnic data is not always readily [...] 15-29 5 Kidney failure <15 (or dialysis) 40 FASTING 41 Because ethnic data is not always readily [...] 15-29 5 Kidney failure <15 (or dialysis) 42 *Ascorbic acid is present which may interfere with detection of blood. 43 FASTING 44 Desirable <150 Borderline high 150-199 High 200-499 Very High >500 45 Desirable <200 Borderline high 200-239 High >239 46 Low <40 Desirable: 40-60 High: >60 47 Unable to calculate LDL as triglyceride is > 400 Procedures Date CPT Code Description Status Comment 07/01/2017 16781 EKG Tracing & Interpretation Completed 03/27/2017 84508 Inject/Drain Joint/Bursa Major Completed W/O US 01/23/2017 Diabetic Retinal Eye Exam Completed 08/08/2016 Diabetic Retinal Eye Exam Completed 07/13/2016 Diabetic Retinal Eye Exam Completed Document: 07/13/16 - Consult Ophthalmology/Luisito 04/17/2016 34467 Stress Test Completed 02/22/2016 65066 EKG Tracing & Interpretation Completed 09/22/2015 86093 Plethysmography Determination Completed Lung Volumes & Per Airway Resist 09/22/2015 18102 Pulmonary Function><Bronchodil Completed 07/19/2015 Diabetic Retinal Eye Exam Completed 02/18/2015 Diabetic Retinal Eye Exam Completed 09/27/2014 Diabetic Retinal Eye Exam Completed 12/26/2012 31365 Rad Exam; Foot Comp Completed 11/05/2012 67843 Rad Exam; Foot Limited Completed 10/17/2012 30849 Short Leg Cast Completed 10/17/2012 81027 FX Metatarsal Care Completed Encounters Type Date Location Provider CPT E/M Dx Office Visit 09/23/2017 11:00a [facility] Internal Clifton Sloan, 82747 E11.42 Medicine - [place] Pan Sosa E78.2 K21.9 L98.9 Office Visit 08/21/2017 1:45p [facility] Catalina Sarah, 05205 M79.642 Of C.M.A. RPA-C Office Visit 08/19/2017 11:10a [facility] Internal Medicine Aure Osei, 38683 L02.214 - Jordan Sosa M79.642 R21 Office Visit 08/13/2017 11:10a [facility] Internal Medicine Aure Osei, 55909 L02.214 - Jordan Sosa Office Visit 07/01/2017 8:00a [facility] Internal Medicine Clifton Sloan, 96469 Z01.818 - [place] Pan Sosa E11.42 Office Visit 06/14/2017 9:45a [facility] [place] [address] M75.41 C.M.A. M75.21 S46.001D M19.011 Office Visit 05/03/2017 11:15a [facility] [place] [address] M75.41 C.M.A. 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 Office Visit 01/16/2017 1:00p [facility] [place] [address] R22.41 C.M.A. 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 38077 J43.8 Medicine - [address] J45.909 B36.0 Office Visit 09/13/2015 8:00a [facility] Internal Clifton Sloan, 95596 E11.42 Medicine - [address] M.DAngely E78.4 J44.9 Z12.5 Office Visit 07/19/2015 1:40p [facility] Gutierrez, 98678 Q66.2 Carrie Sosa Office Visit 07/06/2015 9:20a [facility] Internal Medicine Jacob Mullen, CECIL [address]22[address] K12.30 - [address] K12.0 Office Visit 06/13/2015 2:00p [facility] Internal Medicine Malik Antonio M.D. 54750 E11.9 - [address] E78.4 M79.671 E66.09 Office Visit 05/13/2015 10:40a [facility] Internal Medicine Malik Antonio M.D. 72669 E11.9 - [address] E78.4 Office Visit 11/02/2014 9:00a [facility] Internal Medicine Malik Antonio M.D. 45273 250.02 - [address] 272.4 719.47 278.00 Office Visit 09/08/2014 9:20a [facility] Internal Medicine Malik Antonio M.D. 79920 250.02 - [address] 272.4 709.8 719.47 Office Visit 06/04/2014 9:40a [facility] Internal Medicine Malik Antonio M.D. 17801 250.02 - [address] 272.4 709.8 719.47 729.5 Office Visit 12/25/2013 6[facility]p [facility] Cindi Sanders, 07382 682.2 Hospitalists N.P. 250.00 790.29 272.4 Office Visit 12/24/2013 6:58p [facility], Cindi Sanders, 28177 682.2 Hospitalists N.P. 790.29 250.00 272.4 Office Visit 12/23/2013 6:57p [facility], Cindi Sanders, 75021 682.2 Hospitalists N.P. 790.29 250.00 272.4 Office Visit 12/22/2013 6:56p [facility], Cindi Sanders, 89660 682.2 Hospitalists N.P. 790.29 250.00 272.4 Plan of Care Future Appointment(s):11/19/2017 8:20 am - Clifton Sloan M.D. at [facility] Internal Medicine - [address]/08/2017 - Clifton Sloan M.D.E11.42 Type 2 diabetes mellitus with diabetic polyneuropathyNew Medication:Basaglar Kwikpen 100 Unit/MLComments:You are not meeting goal for blood sugar control. Increase basaglar to 40units hsFollow up:3 months, 20 minGoals:Goal Hemoglobin A1c is less than 7.0%. Goal Blood pressure is less than 140/90. Goal LDL (bad cholesterol) is less than 70.J45.909 Unspecified asthma, uncomplicatedNew Medication:Ventolin HFA 108(90 Base) mcg/ActE78.2 Mixed hyperlipidemiaNew Medication:Rosuvastatin Calcium 10 mgComments:Your goal LDL is <130. You are not meeting this goal. Continue statin medication, call me if muscle weakness or pain occurs.Follow up:6 weeks 20 min, fasting labs priorGoals: Exercising 30 minutes 5 times a week will help raise HDL (good cholesterol) and lower LDL (bad cholesterol.) You need to lose 1-2 pounds per month to move towards a BMI (body mass index) of less than 25.K21.9 Gastro-esophageal reflux disease without esophagitisNew Medication:Omeprazole 20 mg
[2017-10-10 12:35] LABS: EGFR Non-African American 84.6 (>60)
[2017-10-10] MEDS ORDERED: HYDROcodone/ACETAMIN 5-325 MG* 1 TAB PO ONE (15:08)
[2017-10-10 17:08] VITALS: BP 136/71
== END 2017-10-10 17:07 | disposition home or self-care (01) ==
LOC: ED 11:16
DX: R19.7 Diarrhea, unspecified (principal); R11.0 Nausea; R10.816 Epigastric abdominal tenderness; E11.9 Type 2 diabetes mellitus without complications; Z79.4 Long term (current) use of insulin; Z79.84 Long term (current) use of oral hypoglycemic drugs; K21.9 Gastro-esophageal reflux disease without esophagitis; Z82.49 Family history of ischemic heart disease and other diseases of the circulatory system; Z83.3 Family history of diabetes mellitus; Z87.891 Personal history of nicotine dependence
CPT/HCPCS: 36415; 80053; 85027; 96360; 99284

== ENCOUNTER 2017-10-16 10:09 | Emergency (ER) | payer OTHER ==
[2017-10-16 10:29] VITALS: BP 130/81
--- NOTE | 2017-10-16 11:06 | UC ---
Abdominal Pain Male HPI - HPI Summary HPI Summary: 47 yo male with about a 10 day hx of diarrhea 3-5 x day associated with cramps on two antibiotics in july trip to [facility] prior to onset of symptoms - History of Current Complaint Chief Complaint: UCAbdominalPain Stated Complaint: DIARRHEA ABD PAIN Time Seen by Provider: 10/16/17 10:47 Hx Obtained From: Patient Onset/Duration: Sudden Onset, Lasting Days Timing: Constant Severity Initially: Moderate Severity Currently: Mild Pain Intensity: 0 - 8 with cramps Pain Scale Used: 0-10 Numeric Location: Diffuse Character: Cramping Associated Signs And Symptoms: Positive: Diarrhea - Allergies/Home Medications Allergies/Adverse Reactions: Allergies Allergy/AdvReac Type Severity Reaction Status Date / Time No Known Allergies Allergy Verified 10/16/17 10:29 PMH/Surg Hx/FS Hx/Imm Hx Previously Healthy: Yes Endocrine History: Diabetes, Dyslipidemia Cardiovascular History: Hypertension Respiratory History: Asthma - Surgical History Surgical History: None - Family History Known Family History: Positive: Cardiac Disease, Diabetes - Social History Alcohol Use: None Substance Use Type: None Smoking Status (MU): Former Smoker Type: Cigarettes Have You Smoked in the Last Year: Yes - Immunization History Most Recent Influenza Vaccination: unknown Most Recent Tetanus Shot: unknown Most Recent Pneumonia Vaccination: never Review of Systems Constitutional: Negative Skin: Negative Eyes: Negative ENT: Negative Respiratory: Negative Cardiovascular: Negative Gastrointestinal: Abdominal Pain, Diarrhea Genitourinary: Negative Motor: Negative Neurovascular: Negative Musculoskeletal: Negative Neurological: Negative Psychological: Negative Is Patient Immunocompromised?: No All Other Systems Reviewed And Are Negative: Yes Physical Exam Triage Information Reviewed: Yes Appearance: Well-Appearing, No Pain Distress, Well-Nourished Vital Signs: Initial Vital Signs Temp 96.9 F 10/16/17 10:22 Pulse 109 10/16/17 10:22 Resp 18 10/16/17 10:22 BP 130/81 10/16/17 10:22 Pulse Ox 98 10/16/17 10:22 Vital Signs Reviewed: Yes Eyes: Positive: Conjunctiva Clear ENT: Negative: Nasal congestion, Nasal drainage, Trismus, Muffled voice, Hoarse voice Neck: Positive: Supple, Nontender Respiratory: Positive: Lungs clear, Normal breath sounds, No respiratory distress, No accessory muscle use Cardiovascular: Positive: RRR, No Murmur Abdomen Description: Positive: Nontender, No Organomegaly, Soft. Negative: CVA Tenderness (R), CVA Tenderness (L) Bowel Sounds: Positive: Present Musculoskeletal: Positive: ROM Intact, No Edema Neurological: Positive: Alert Psychological Exam: Normal Abd Pain Male Course/Dx - Differential Dx/Clinical Impression Provider Diagnoses: acute diarrhea Discharge - Sign-Out/Discharge Documenting (check all that apply): Patient Departure - Discharge Plan Condition: Stable Disposition: HOME Patient Education Materials: Acute Diarrhea (ED) Referrals: Clifton Sloan MD [Primary Care Provider] - 4 Days Additional Instructions: stool studies pending - Billing Disposition and Condition Condition: STABLE Disposition: Home
--- NOTE | 2017-10-17 07:43 | UC ---
- Progress Note Progress Note: stool description reviewed shiga and O+P pending no change Ljj 10/17/2017 Discharge - Sign-Out/Discharge Documenting (check all that apply): Post-Discharge Follow Up - Discharge Plan Condition: Stable Disposition: HOME Patient Education Materials: Acute Diarrhea (ED) Referrals: Clifton Sloan MD [Primary Care Provider] - 4 Days Additional Instructions: stool studies pending - Billing Disposition and Condition Condition: STABLE Disposition: Home
--- NOTE | 2017-10-18 20:50 | PN ---
Progress Note - Progress Note Date of Service: 10/16/17 Note: Patient presented to the UC 4 days after presenting to the ED with diarrhea symptoms. He was not placed on antibiotic. He endorses over 10 stools per day. Denies any fever. According to UTD: generally do not recommend antibiotic treatment for immunocompetent individuals between 12 months and 50 years of age who have documented Salmonella gastroenteritis with mild to moderate symptoms, as the illness is typically self-limited. However, d/t over 10 stools her day with over 10 days - will give a course of antibiotics at this time. Ciprofloxacin 500 mg by mouth 2 times daily 3 days.
== END 2017-10-16 11:10 | disposition home or self-care (01) ==
LOC: UCEAST 10:09
DX: R19.7 Diarrhea, unspecified (principal); Z82.49 Family history of ischemic heart disease and other diseases of the circulatory system; Z83.3 Family history of diabetes mellitus; Z87.891 Personal history of nicotine dependence
CPT/HCPCS: 87045; 87046; 87077; 87328; 87329; 87493; 87899; 99211; G0463